=== PATIENT | female | born 1975 | race Caucasian/White ===

== ENCOUNTER → 2022-08-20 | Outpatient (CLI) | payer OTHER ==
[~2022-08-20] MED LIST: CEPH500 PO; HYDACE5 PO; OXYACE5T PO; SULTRIDS PO
[2022-08-20 19:30] LABS: BASOPHILS ABSOLUTE AUTO 0.05 K/mm3 (0.00-0.23); BASOPHILS PERCENT AUTO 1 % (0-2); EOSINOPHILS ABSOLUTE AUTO 0.13 K/mm3 (0.00-0.68); EOSINOPHILS PERCENT AUTO 3 % (0-6); Hematocrit 35.5 % (33.0-51.0); Hemoglobin 12.4 g/dL (11.5-16.0); IMMATURE GRAN ABSOLUTE AUTO 0.01 K/mm3 (0.00-0.10); IMMATURE GRAN PERCENT AUTO 0 % (0-1); LYMPHOCYTES ABSOLUTE AUTO 1.36 K/mm3 (0.84-5.20); LYMPHOCYTES PERCENT AUTO 33 % (21-46); MONOCYTES ABSOLUTE AUTO 0.74 K/mm3 (0.16-1.47); MONOCYTES PERCENT AUTO 18 % (4-13); Mean Corpuscular HGB 33.5 pg (26.0-34.0); Mean Corpuscular HGB Conc 34.9 g/dL (31.5-36.5); Mean Corpuscular Volume 96 fL (80-100); Mean Platelet Volume 10.9 fL (9.1-12.4); NEUTROPHILS ABSOLUTE AUTO 1.81 K/mm3 (1.96-9.15); NEUTROPHILS PERCENT AUTO 44 % (41-73); Platelet Count 74 K/mm3 (150-400); RDW Coefficient Variation 14.6 % (11.7-14.2)
[2022-08-20 19:40] LABS: Albumin, Blood 2.3 g/dL (3.4-5.0); Albumin/Globulin Ratio 0.4 (0.8-1.8); Bilirubin, Total 3.3 mg/dL (0.1-1.0); Bun/Creatinine Ratio 17.8 (12.0-20.0); Calcium, Blood 8.9 mg/dL (8.5-10.1); Creatinine, Blood 0.68 mg/dL (0.40-1.00); Globulin, Blood 5.8 g/dL (2.2-4.0); Potassium, Blood 3.5 mmol/L (3.5-5.5); Total Protein, Blood 8.1 g/dL (6.4-8.2)
== END | disposition home or self-care (01) ==
LOC: LAB 17:40 → LAB SHORT 17:40
PROVIDERS: Family Medicine
DX: D69.59 Other secondary thrombocytopenia (principal); K70.30 Alcoholic cirrhosis of liver without ascites
CPT/HCPCS: 80053; 85025

== ENCOUNTER → 2022-08-23 | Outpatient (CLI) | payer OTHER ==
[2022-08-23 11:22] LABS: International Normalized Ratio 1.39; Prothrombin Time Results 14.3 Sec (9.7-11.5)
[2022-08-23 11:23] LABS: International Normalized Ratio 1.36
[2022-08-23 11:54] LABS: BASOPHILS ABSOLUTE AUTO 0.03 K/mm3 (0.00-0.23); BASOPHILS PERCENT AUTO 1 % (0-2); EOSINOPHILS ABSOLUTE AUTO 0.13 K/mm3 (0.00-0.68); EOSINOPHILS PERCENT AUTO 3 % (0-6); Hematocrit 36.3 % (33.0-51.0); Hemoglobin 12.6 g/dL (11.5-16.0); IMMATURE GRAN ABSOLUTE AUTO 0.01 K/mm3 (0.00-0.10); IMMATURE GRAN PERCENT AUTO 0 % (0-1); LYMPHOCYTES ABSOLUTE AUTO 1.36 K/mm3 (0.84-5.20); LYMPHOCYTES PERCENT AUTO 32 % (21-46); MONOCYTES ABSOLUTE AUTO 0.74 K/mm3 (0.16-1.47); MONOCYTES PERCENT AUTO 18 % (4-13); Mean Corpuscular HGB 33.7 pg (26.0-34.0); Mean Corpuscular HGB Conc 34.7 g/dL (31.5-36.5); Mean Corpuscular Volume 97 fL (80-100); Mean Platelet Volume 9.8 fL (9.1-12.4); NEUTROPHILS ABSOLUTE AUTO 1.96 K/mm3 (1.96-9.15); NEUTROPHILS PERCENT AUTO 46 % (41-73); Platelet Count 78 K/mm3 (150-400); RDW Coefficient Variation 14.8 % (11.7-14.2); RDW Standard Deviation 53.1 fL (35.1-46.3); Red Blood Cell Count 3.74 M/mm3 (3.80-5.20); White Blood Cell Count 4.23 K/mm3 (4.00-11.30)
== END | disposition home or self-care (01) ==
LOC: LAB SHORT 10:41 → LAB 10:41
PROVIDERS: Family Medicine; Nurse Practitioner Family
DX: D69.59 Other secondary thrombocytopenia (principal)
CPT/HCPCS: 85025; 85610; 85730

== ENCOUNTER 2024-03-15 17:23 | Inpatient (IN) | payer OTHER ==
[~2024-03-15] VITALS: Ht 160 cm; Wt 111.8 kg
[~2024-03-15 17:23] MED LIST changes: +BUME1 PO; +BUME2 PO; +DESVENLAFAXINE50 M3 PO; +LACT10SY PO; +Potassium Chlo20 ME1 PO; +SIME80CH PO; +SPIR50 PO; +SULFAMETHOXAZO1 EAC1 PO
[2024-03-15 19:34] LABS: BASOPHILS ABSOLUTE AUTO 0.06 K/mm3 (0.00-0.23); BASOPHILS PERCENT AUTO 1 % (0-2); EOSINOPHILS ABSOLUTE AUTO 0.16 K/mm3 (0.00-0.68); EOSINOPHILS PERCENT AUTO 4 % (0-6); Hematocrit 34.6 % (33.0-51.0); Hemoglobin 12.1 g/dL (11.5-16.0); IMMATURE GRAN ABSOLUTE AUTO 0.02 K/mm3 (0.00-0.10); IMMATURE GRAN PERCENT AUTO 1 % (0-1); LYMPHOCYTES ABSOLUTE AUTO 0.94 K/mm3 (0.84-5.20); LYMPHOCYTES PERCENT AUTO 21 % (21-46); MONOCYTES ABSOLUTE AUTO 0.65 K/mm3 (0.16-1.47); MONOCYTES PERCENT AUTO 15 % (4-13); Mean Corpuscular HGB 33.7 pg (26.0-34.0); Mean Corpuscular Volume 96 fL (80-100); NEUTROPHILS ABSOLUTE AUTO 2.61 K/mm3 (1.96-9.15); NEUTROPHILS PERCENT AUTO 59 % (41-73); Platelet Count 72 K/mm3 (150-400); RDW Coefficient Variation 18.1 % (11.7-14.2); RDW Standard Deviation 63.2 fL (35.1-46.3); Red Blood Cell Count 3.59 M/mm3 (3.80-5.20); White Blood Cell Count 4.44 K/mm3 (4.00-11.30)
[2024-03-15 20:01] LABS: Albumin, Blood 2.3 g/dL (3.4-5.0); Albumin/Globulin Ratio 0.7 (0.8-1.8); Bilirubin, Total 7.5 mg/dL (0.1-1.0); Bun/Creatinine Ratio 13.5 (12.0-20.0); Calcium, Blood 8.6 mg/dL (8.5-10.1); Creatinine, Blood 0.52 mg/dL (0.40-1.00); Globulin, Blood 3.5 g/dL (2.2-4.0); Total Protein, Blood 5.8 g/dL (6.4-8.2)
[2024-03-15] MEDS ORDERED: Lactulose 20 GM/30 ML UDC PO SCH ×2 (20:20→23:00)
[2024-03-15 20:50] LABS: International Normalized Ratio 1.42; Prothrombin Time Results 14.8 Sec (9.7-11.5)
[2024-03-15 21:08] LABS: Source, Urine Clean Catch
[2024-03-15 21:12] LABS: Appearance, Urine Clear (Clear); Blood, Urine 1+ (Neg); Glucose Qualitative, Urine Neg (Neg); Ketones, Urine Neg (Neg); Leukocyte Esterase, Urine 1+ (Neg); Nitrite, Urine Neg (Neg); Protein, Urine Neg (Neg); Urobilinogen, Urine 4+ (Normal)
[2024-03-15 21:17] LABS: Bilirubin, Urine 2+ (Neg); Color, Urine Orange (P-Yellow)
[2024-03-15 21:19] LABS: Bacteria Few /hpf; Squamous Epithelial Cells Few /hpf (Few)
[2024-03-15] MEDS ORDERED: Ondansetron HCl 2 MG / ML 2ML Vial IV PRN (22:35)
[2024-03-15] MEDS ORDERED: FLU VACC TS2024-25(6MOS UP)/PF 45 MCG/0.5 ML SYRINGE IM ONE (22:35)
[2024-03-15 22:40] LABS: Automated BF WBC Count 0.238 K/mm3 (0-999)
[2024-03-15] MEDS ORDERED: CefTRIAXone Sodium 1,000 MG in NS 100 ML IV SCH (22:44)
[2024-03-15 22:48] LABS: Protein, Body Fluid 0.7 g/dL
[2024-03-15] MEDS ORDERED: Spironolactone 25 MG Tab PO SCH (23:00)
[2024-03-15] MEDS ORDERED: NS 250 ML IV PRN (23:10)
[2024-03-15] MEDS ORDERED: FURO40 PO (23:15)
[2024-03-15] MEDS ORDERED: DESV50 PO (23:17)
[2024-03-15 23:50] LABS: Body Fluid WBC Count 238 /mm3 (0-999); RBC Count, Body Fluid 1225 /mm3 (0-0)
[2024-03-15 23:51] LABS: Appearance, Body Fluid Hazy (Clear); Color, Body Fluid Yellow (None-Yellow)
[2024-03-15 23:56] LABS: Total Cell Count, Body Fluid 100
[2024-03-16 00:06] VITALS: BP 139/65
[2024-03-16 05:02] VITALS: BP 122/61
--- NOTE | 2024-03-16 05:44 | NUR ---
SHIFT SUMMARY NOC PT A/O X 4. PLEASANT AND COOPERATIVE WITH CARE. VSS. ADMIT FROM ED WITH HEPATIC ENCEPHALOPATHY AND AMMONIA 118. PT HAS ENULOSE PRESCRIBED AT HOME BUT REFUSES TO TAKE IT DUT TO FREQUENT LOOSE BM'S. PT GIVEN 45ML ENULOSE IN ED AND HAS PRODUCE 4 XL LOOSE BM'S SINCE ADMIT TO UNIT. PT LUNGS CLEAR T/O WHILE SITTING UP, BUT EXPIRATORY WHEEZING HEARD WHILE LYING DOWN, BUT SPO2 >95% ON RA. PT REPORTS BEING SOBER X 1 YR. ENDORSE SMOKING LESS THAN 1/2 PACK DAILY, NICOTINE PATCH ORDERED. PT HAS ACITES AND PARACENTISIS PERFORMED IN ED WITH CULTURES PENDING, PT ON PROPHYLACTIC IV ABX TX PENDING RESULTS. PT HAS SEVERE RED DISCOLORATION AND SCALY SCABS FROM LIVER CIRRHOSIS ON BLE. PT HAS REMAINED WITH PT T/O NIGHT TO RELIEVE ANXIETY. PT CURRENTLY RESTING WITH BED IN LOWEST POSITION, AND CALL LIGHT WITHIN REACH.
[2024-03-16 06:47] LABS: Albumin, Blood 2.2 g/dL (3.4-5.0); Albumin/Globulin Ratio 0.6 (0.8-1.8); Bilirubin, Total 6.5 mg/dL (0.1-1.0); Bun/Creatinine Ratio 13.5 (12.0-20.0); Calcium, Blood 8.2 mg/dL (8.5-10.1); Creatinine, Blood 0.52 mg/dL (0.40-1.00); Globulin, Blood 3.4 g/dL (2.2-4.0); Potassium, Blood 3.5 mmol/L (3.5-5.5); Total Protein, Blood 5.6 g/dL (6.4-8.2)
[2024-03-16 07:36] VITALS: BP 132/61
[2024-03-16] MEDS ORDERED: Nicotine 21 MG PATCH TOP SCH (09:00)
[2024-03-16] MEDS ORDERED: Empagliflozin 10 MG TAB PO SCH (09:00)
[2024-03-16] MEDS ORDERED: Bumetanide 1 MG Tab PO SCH (09:00)
[2024-03-16] MEDS ORDERED: Spironolactone 50 MG Tab PO SCH (09:00)
[2024-03-16] MEDS ORDERED: Aspirin 81 MG Chew PO SCH (13:00)
[2024-03-16] MEDS ORDERED: Prochlorperazine Edisylate 10 mg Vial IV PRN (16:50)
[2024-03-16 16:53] VITALS: BP 118/55
--- NOTE | 2024-03-16 17:27 | NUR ---
CONTACTED DR LUNDBERG REGARDING PATIENT VOMITTING. PATIENT WAS GIVEN ZOFRAN WITH NO RESULTS AND NEW MEDICATION WAS ORDERED. DR LUNDBERG ADVISED PATIENT WAS FINE MOST OF THE DAY UNTIL WAS GIVEN OUTSIDE FOOD BY SPOUSE. PATIENT SPOUSE ADVISE TO HOLD OFF ON OUTSIDE FOOD UNTIL VOMITTING SUBSIDES.
--- NOTE | 2024-03-16 17:29 | NUR ---
SHIFT SUMMARY: PATIENT WAS A/O X 4, PATIENT HAS BEEN UP IN CHAIR MOST OF TODAY AND ABLE TO BREATH WITHOUT DIFFICULTY. PATIENT ADVISED THAT LAYING DOWN CAN CAUSE PRESSURE ON THE DIAPHRAM WHICH CAUSES DIFFICULTY BREATHING. PATIENT HAS AHD VOMITTING THIS AFTERNOON AND WAS GIVEN ZOFRAN AND THEN COMPAZINE TO ASSIST WITH NAUSEA AND VOMITTING. PATIENT FAMILY BROUGHT IN OUTSIDE FOOD WHICH PATIENT ATE AND DRANK AND BEGAN VOMITTING. PATIENT FAMILY ADVISED TO HOLD OFF ON OUTSIDE FOOD DUE TO VOMITTING. PATIENT FAMILY STATED THEY WILL NOT BRING IN MORE FOOD. PATIENT ABLE TO ABULATE WITH SBA WITH FWW AND ABLE TO CALL OUT FOR ASSITANCE WHEN NEEDED. PATIENT CALL LIGHT AT BEDSIDE
[2024-03-16 19:59] VITALS: BP 109/56
[2024-03-16 20:45] LABS: Lactate Dehydrogenase, Body Fl 43 U/L
--- NOTE | 2024-03-17 01:49 | NUR ---
CONTACTED DR. WELLINGTON WITH UPDATED CORRECTION RECEIVED FROM LAB ON LDH LEVEL- ORIGINAL LAB FOR LDH WAS 449, CORRECTED AMOUNT 659, BODY FLUID LDH WAS 57, ACTUAL 43.
--- NOTE | 2024-03-17 03:40 | NUR ---
PT HAD EMESIS - WAS GOING TO MEDICATE WITH COMPAZINE BUT PT'S IV TO RAC WAS PARTIALLY PULLED OUT - APPEARED TO HAVE INFILTRATED. CALLED [facility], PHARMACIST UPDATED THAT PT RECEIVED ROCEPHIN EARLIER TONIGHT AND THAT THE IV INFILTRATED. (THE IV FLUSHED WELL EARLIER AND THE PUMP DID NOT ALARM AT ALL.) R ARM IS CURRENTLY ELEVATED ON A PILLOW. AWAITING RETURN PHONE CALL FROM [facility] FOR FURTHER INSTRUCTION. THE SITE ISN'T RED/COOL/OR WARM TO THE TOUCH.
[2024-03-17 04:07] VITALS: BP 110/51
--- NOTE | 2024-03-17 06:02 | NUR ---
I SPOKE TO [facility] - HE REPORTED THAT ROCEPHIN ISN'T A VESICANT BUT AN IRRITANT AND TO ELEVATE THE R ARM - WHICH WE HAVE BEEN DOING SINCE 329. I MARKED THE SITE, AND TOOK A PICTURE, AND NOTIFIED DR. WELLINGTON OF ALL OF THE ABOVE, AND THAT THE SITE IS OOZING - CONTINUE TO MONITOR AND FOLLOW UP WITH THE DRKian IF THE SITE WORSENS.
--- NOTE | 2024-03-17 06:20 | NUR ---
SHIFT SUMMARY - PT HAS BEEN SLEEPING THROUGHOUT MOST OF THE NIGHT, EXCEPT FOR WHEN SHE HAD LOOSE STOOLS. PT TOOK HER LACTULOSE EARLIER TONIGHT WITHOUT DIFFICULTY. PT HAS BEEN SLEEPING IN THE CHAIR - WHICH IS HER PREFERENCE. R AC IV SITE INFILTRATED - SEE PREVIOUS NOTES REGARDING INFILTRATION. CALL LIGHT WITHIN REACH. FLUIDS AT BEDSIDE. PT UP SEVERAL TIMES TONIGHT WITH LOOSE BM'S.
[2024-03-17 06:50] LABS: Albumin, Blood 2.3 g/dL (3.4-5.0); Albumin/Globulin Ratio 0.6 (0.8-1.8); Bilirubin, Total 7.1 mg/dL (0.1-1.0); Bun/Creatinine Ratio 11.6 (12.0-20.0); Calcium, Blood 8.4 mg/dL (8.5-10.1); Creatinine, Blood 0.52 mg/dL (0.40-1.00); Globulin, Blood 3.7 g/dL (2.2-4.0); Magnesium, Blood 2.1 mg/dL (1.6-2.4)
[2024-03-17 07:13] LABS: Hematocrit 35.1 % (33.0-51.0); Hemoglobin 12.1 g/dL (11.5-16.0); Mean Corpuscular HGB 33.5 pg (26.0-34.0); Mean Corpuscular HGB Conc 34.5 g/dL (31.5-36.5); Mean Corpuscular Volume 97 fL (80-100); Mean Platelet Volume 8.8 fL (9.1-12.4); Platelet Count 75 K/mm3 (150-400); RDW Coefficient Variation 18.1 % (11.7-14.2); RDW Standard Deviation 62.5 fL (35.1-46.3); Red Blood Cell Count 3.61 M/mm3 (3.80-5.20)
[2024-03-17 07:40] VITALS: BP 114/60
[2024-03-17] MEDS ORDERED: LACT10SY PO (13:59)
--- NOTE | 2024-03-17 14:49 | NUR ---
DISCHARGE SUMMARY: PT DISCHARGED HOME WITH HOME HEALTH SERVICES. PT/SON/SP EDUCATED ON DISCHARGE INSTRUCTIONS/PLAN/MEDICATIONS. PT/SON/SP ALL V/U AND DENIES ANY FURTHER NEEDS. SON REPORTS HE IS COMFORTABLE WITH HIS MOM DISCHARGING. PT REFUSED TO HAVE SCRIPT SENT TO A OPEN PHARMACY TODAY AND REQUESTED IT BE SENT TO [facility]. EXPLAINED THEY WILL NOT BE ABLE TO GET UNTIL TUESDAY. SP AND SON STATE THEY HAVE 3 BOTTLES OF LACTULOSE IN THE HOUSE ALREADY. EDUCATED ON DOSING AND ENCOURAGED TO TAKE DESPITE PT STATING SHE STOPPED TAKING DUE TO HAVING DIARRHEA. EXPLAINED TO THEM MECHANISM OF HOW LACTULOSE WORKS. ALL V/U. PT ESCORTED TO POV VIA WHEELCHAIR. BELONGINGS SENT WITH PT.
[2024-03-19 08:38] LABS: HEPATITIS C AB CIA INTERP High Pos (Negative); HEPATITIS C ANTIBODY CIA INDEX >11.00 IV
[2024-03-20 17:28] LABS: HCV QNT BY NAAT (IU/ML) 897000 IU/mL; HCV QNT BY NAAT (LOG IU/ML) 5.95; HCV QNT BY NAAT INTERP Detected (Not Detected)
== END 2024-03-17 15:12 | disposition home health service (06) | DRG 443 ==
LOC: ER 17:23 → MEDS 23:04 → ER 23:04 → MEDS 23:04
PROVIDERS: Internal Medicine; Student in an Organized Health Care Education/Training Program; ADMIT Internal Medicine
PROC: 0W9G3ZZ Drainage of Peritoneal Cavity, Percutaneous Approach (ICD-10-PCS; principal; 2024-03-16)
DX: K76.82 Hepatic encephalopathy (principal); K70.31 Alcoholic cirrhosis of liver with ascites; G43.B0 Ophthalmoplegic migraine, not intractable; Z28.21 Immunization not carried out because of patient refusal; F17.210 Nicotine dependence, cigarettes, uncomplicated; R29.898 Other symptoms and signs involving the musculoskeletal system; Z79.899 Other long term (current) drug therapy
CPT/HCPCS: 36415; 49083; 70450; 76705; 80053; 81001; 82140; 83615; 83735; 84157; 85025; 85027; 85610; 85730; 86803; 87070; 87075; 87086; 87205; 87522; 89051; 93005; 93010; 94760; 96365; 97161; 97530; 99285-25; A9270; G0378; J0696; J0780; J2405; J7050

== ENCOUNTER 2024-04-15 14:48 | Inpatient (IN) | payer OTHER ==
[~2024-04-15] VITALS: Ht 160 cm; Wt 108.2 kg
[~2024-04-15 14:48] MED LIST changes: +DESV50 PO; +FURO40 PO
[2024-04-15 16:10] LABS: BASOPHILS PERCENT AUTO 2 % (0-2); EOSINOPHILS ABSOLUTE AUTO 0.23 K/mm3 (0.00-0.68); EOSINOPHILS PERCENT AUTO 5 % (0-6); Hematocrit 36.6 % (33.0-51.0); Hemoglobin 12.5 g/dL (11.5-16.0); IMMATURE GRAN ABSOLUTE AUTO 0.01 K/mm3 (0.00-0.10); IMMATURE GRAN PERCENT AUTO 0 % (0-1); LYMPHOCYTES ABSOLUTE AUTO 1.16 K/mm3 (0.84-5.20); LYMPHOCYTES PERCENT AUTO 24 % (21-46); MONOCYTES ABSOLUTE AUTO 0.73 K/mm3 (0.16-1.47); MONOCYTES PERCENT AUTO 15 % (4-13); Mean Corpuscular HGB 33.2 pg (26.0-34.0); Mean Corpuscular HGB Conc 34.2 g/dL (31.5-36.5); Mean Corpuscular Volume 97 fL (80-100); Mean Platelet Volume 8.7 fL (9.1-12.4); NEUTROPHILS ABSOLUTE AUTO 2.62 K/mm3 (1.96-9.15); NEUTROPHILS PERCENT AUTO 54 % (41-73); Platelet Count 91 K/mm3 (150-400); RDW Coefficient Variation 17.2 % (11.7-14.2); RDW Standard Deviation 60.7 fL (35.1-46.3); Red Blood Cell Count 3.76 M/mm3 (3.80-5.20); White Blood Cell Count 4.85 K/mm3 (4.00-11.30)
[2024-04-15 16:24] LABS: International Normalized Ratio 1.38; Prothrombin Time Results 14.4 Sec (9.7-11.5)
[2024-04-15 16:29] LABS: Albumin, Blood 2.3 g/dL (3.4-5.0); Albumin/Globulin Ratio 0.6 (0.8-1.8); Bilirubin, Total 6.2 mg/dL (0.1-1.0); Bun/Creatinine Ratio 12.9 (12.0-20.0); Calcium, Blood 8.2 mg/dL (8.5-10.1); Creatinine, Blood 0.54 mg/dL (0.40-1.00); Globulin, Blood 3.7 g/dL (2.2-4.0); Potassium, Blood 3.9 mmol/L (3.5-5.5)
[2024-04-15 16:33] LABS: Magnesium, Blood 1.9 mg/dL (1.6-2.4); Phosphorus, Blood 3.5 mg/dL (2.5-4.9)
[2024-04-15 18:14] LABS: Source, Urine Clean Catch
[2024-04-15 18:25] LABS: Appearance, Urine Clear (Clear); Blood, Urine Neg (Neg); Color, Urine Amber (P-Yellow); Glucose Qualitative, Urine Neg (Neg); Ketones, Urine Neg (Neg); Leukocyte Esterase, Urine Neg (Neg); Nitrite, Urine Neg (Neg); Protein, Urine Neg (Neg); Urobilinogen, Urine 4+ (Normal)
[2024-04-15 18:27] LABS: Bilirubin, Urine 1+ (Neg)
[2024-04-15] MEDS ORDERED: Furosemide 10 MG / ML 2ML Vial IV ONE (19:15)
[2024-04-15] MEDS ORDERED: Lactulose 20 GM/30 ML UDC PO ONE (19:15)
[2024-04-15] MEDS ORDERED: FLU VACC TS2024-25(6MOS UP)/PF 45 MCG/0.5 ML SYRINGE IM ONE (20:25)
[2024-04-15] MEDS ORDERED: Ondansetron HCl 2 MG / ML 2ML Vial IV PRN (20:25)
[2024-04-15 20:50] LABS: CORONAVIRUS COVID-19 AG Negative (NEGATIVE); INFLUENZA A AG Negative (NEGATIVE); INFLUENZA B AG Negative (NEGATIVE)
[2024-04-15] MEDS ORDERED: Azithromycin 500 MG in NS 250 ML IV SCH (21:00)
[2024-04-15] MEDS ORDERED: Enoxaparin 40 MG/0.4 ML SYR SC SCH (21:00)
[2024-04-15] MEDS ORDERED: CefTRIAXone Sodium 1,000 MG in NS 100 ML IV SCH (21:00)
[2024-04-15 21:19] LABS: Base Excess Venous -2.5 mmol/L; Bicarbonate Venous 22.9 mmol/L (24.0-30.0); PCO2 Venous 32.5 mmHg (38-42); pH Blood Venous 7.43 (7.34-7.37)
--- NOTE | 2024-04-15 22:15 | NUR ---
NEW ADMIT. PATIENT ARRIVED TO ROOM 311 FROM THE ER. PATIENT ARRIVED WITH AT BEDSIDE. PATIENT IS ALERT WITH CONFUSION UPON ARRIVAL TO ROOM. PATIENT TRANSFERED TO HOSPITAL BED FROM [facility] WITH SLIDE SHEET AND 3 PERSON ASSIST. THIS RN TO ASSUME CARE.
[2024-04-15 22:31] VITALS: BP 109/64
[2024-04-15] MEDS ORDERED: Albumin (Human) 25gm/100ml 100 ML IV ONE (23:55)
[2024-04-16] MEDS ORDERED: NS 250 ML IV PRN (00:10)
--- NOTE | 2024-04-16 04:05 | NUR ---
SHIFT SUMMARY. PATIENT IS A&OX3 WITH CONFUSION. PATIENT IS A POOR HISTORIAN-WILL ASK TO ANSWER QUESTIONS FOR HER. PATIENT IS ABLE TO MAKE HER NEEDS KNOWN. PATIENT ASKING FOR WATER AND FOOD THIS SHIFT-CURRENT ORDER IS FOR NPO. PATIENT IS OKAY WITH WEARING CPAP BUT TOLD RT THAT SHE DID NOT WANT IT BECAUSE HER BREATHING IS BETTER THAN IT IS AT HER BASELINE. PATIENT IS PLEASANT AND COOPERATIVE WITH CARE. PATIENTS BLE ARE DISCOLORED-SEE PICTURES. PATIENT HAS RESTED ON AND OFF T/O THE NIGHT, PATIENT APPEARS TO HAVE INCREASED WORK OF BREATHING SATTING AT 96% ON RA-PATIENT DENIES NEEDING ANYTHING FOR HER BREATHING. BED IS LOCKED IN THE LOWEST POSITION WITH CALL LIGHT IN REACH. CARE IS ONGOING.
[2024-04-16 04:48] LABS: BASOPHILS ABSOLUTE AUTO 0.09 K/mm3 (0.00-0.23); BASOPHILS PERCENT AUTO 2 % (0-2); EOSINOPHILS ABSOLUTE AUTO 0.29 K/mm3 (0.00-0.68); EOSINOPHILS PERCENT AUTO 6 % (0-6); Hematocrit 32.5 % (33.0-51.0); IMMATURE GRAN ABSOLUTE AUTO 0.02 K/mm3 (0.00-0.10); IMMATURE GRAN PERCENT AUTO 0 % (0-1); LYMPHOCYTES ABSOLUTE AUTO 1.27 K/mm3 (0.84-5.20); LYMPHOCYTES PERCENT AUTO 26 % (21-46); MONOCYTES ABSOLUTE AUTO 0.85 K/mm3 (0.16-1.47); MONOCYTES PERCENT AUTO 18 % (4-13); Mean Corpuscular HGB Conc 33.8 g/dL (31.5-36.5); Mean Corpuscular Volume 98 fL (80-100); NEUTROPHILS ABSOLUTE AUTO 2.31 K/mm3 (1.96-9.15); NEUTROPHILS PERCENT AUTO 48 % (41-73); Platelet Count 82 K/mm3 (150-400); RDW Coefficient Variation 17.2 % (11.7-14.2); RDW Standard Deviation 61.2 fL (35.1-46.3); Red Blood Cell Count 3.33 M/mm3 (3.80-5.20); White Blood Cell Count 4.83 K/mm3 (4.00-11.30)
[2024-04-16 05:10] LABS: Albumin, Blood 2.5 g/dL (3.4-5.0); Albumin/Globulin Ratio 0.8 (0.8-1.8); Bilirubin, Total 5.7 mg/dL (0.1-1.0); Bun/Creatinine Ratio 12.6 (12.0-20.0); Calcium, Blood 8.3 mg/dL (8.5-10.1); Creatinine, Blood 0.56 mg/dL (0.40-1.00); Globulin, Blood 3.2 g/dL (2.2-4.0); Potassium, Blood 3.8 mmol/L (3.5-5.5); Total Protein, Blood 5.7 g/dL (6.4-8.2)
[2024-04-16 06:10] VITALS: BP 122/61
[2024-04-16 07:18] VITALS: BP 110/57
[2024-04-16] MEDS ORDERED: Furosemide 40 MG Tab PO SCH (09:00)
[2024-04-16] MEDS ORDERED: Lactulose 20 GM/30 ML UDC PO SCH (09:00)
[2024-04-16] MEDS ORDERED: Spironolactone 50 MG Tab PO SCH (09:00)
[2024-04-16 16:22] VITALS: BP 110/57
--- NOTE | 2024-04-16 17:39 | NUR ---
SHIFT SUMMARY PT CONT LEVEL OF CARE. PT NOTED TO BE A&O X2-3. PT NOTED TO BE CONT/INCONT OF URINE. PT NOTED TO TRANSFER TO BSC X1 WITH FWW THIS SHIFT. PT NOTED TO WANT TO TAKE BANDAGE OFF FROM BELOW RIGHT EYE IT WAS IRRITATING. BREAK NURSE REMOVED AND AREA NOTED TO BLEED SIGNIFIGANTLY. PRESSURE WAS HELD FOR 15MIN BEFORE BLEEDING STOPPED. PT STATED SHE DIDNT WANT THE BANDAGE BACK ON.
[2024-04-16 22:14] VITALS: BP 122/58
[2024-04-17 07:58] VITALS: BP 114/50
[2024-04-17 08:02] LABS: BASOPHILS ABSOLUTE AUTO 0.08 K/mm3 (0.00-0.23); BASOPHILS PERCENT AUTO 1 % (0-2); EOSINOPHILS ABSOLUTE AUTO 0.41 K/mm3 (0.00-0.68); EOSINOPHILS PERCENT AUTO 7 % (0-6); Hematocrit 32.3 % (33.0-51.0); Hemoglobin 10.9 g/dL (11.5-16.0); IMMATURE GRAN ABSOLUTE AUTO 0.02 K/mm3 (0.00-0.10); IMMATURE GRAN PERCENT AUTO 0 % (0-1); LYMPHOCYTES ABSOLUTE AUTO 1.47 K/mm3 (0.84-5.20); LYMPHOCYTES PERCENT AUTO 24 % (21-46); MONOCYTES ABSOLUTE AUTO 1.09 K/mm3 (0.16-1.47); MONOCYTES PERCENT AUTO 18 % (4-13); Mean Corpuscular HGB 33.3 pg (26.0-34.0); Mean Corpuscular HGB Conc 33.7 g/dL (31.5-36.5); Mean Corpuscular Volume 99 fL (80-100); Mean Platelet Volume 9.3 fL (9.1-12.4); NEUTROPHILS ABSOLUTE AUTO 2.97 K/mm3 (1.96-9.15); NEUTROPHILS PERCENT AUTO 49 % (41-73); Platelet Count 78 K/mm3 (150-400); RDW Coefficient Variation 17.7 % (11.7-14.2); Red Blood Cell Count 3.27 M/mm3 (3.80-5.20); White Blood Cell Count 6.04 K/mm3 (4.00-11.30)
--- NOTE | 2024-04-17 08:11 | NUR ---
SHIFT SUMMARY. PATIENT IS A&OX2-3 WITH CONFUSION AND FORGETFULLNESS AT TIMES. PATIENT IS CONTINENT/INCONTINENT WITH BOWEL AND BLADDER-PATIENT HAD MULTIPLE LOOSE STOOLS PER PATCH PRESS OPERATOR-PATIENT IS GETTING LACTULOOSE. SKIN IS JAUNDICED. PATIENT IS ABLE TO USE HER CALL LIGHT AND CALL APPROPRIATELY. PATIENT HAS BEEN INCONTINENT OF BOWEL THIS SHIFT. IN AT BEDSIDE T/O NIGHT. BED IS LOCKED IN THE LOWEST POSITION WITH CALL LIGHT IN REACH. REPORT GIVEN TO DAYSHIFT NURSE.
[2024-04-17 08:40] LABS: Albumin, Blood 2.3 g/dL (3.4-5.0); Albumin/Globulin Ratio 0.8 (0.8-1.8); Bun/Creatinine Ratio 10.8 (12.0-20.0); Calcium, Blood 8.3 mg/dL (8.5-10.1); Creatinine, Blood 0.56 mg/dL (0.40-1.00); Potassium, Blood 3.7 mmol/L (3.5-5.5); Total Protein, Blood 5.3 g/dL (6.4-8.2)
[2024-04-17] MEDS ORDERED: B-1100 M1 PO (13:41)
[2024-04-17] MEDS ORDERED: ALBU90OI INH (13:42)
--- NOTE | 2024-04-17 14:03 | NUR ---
DISCHARGE PT DISCHARGED HOME VIA PRIVATE VEHICLE WITH . MARKETING PR INTERN BROUGHT PT OUT IN A WHEELCHAIR. DISCHARGE FORMS AND EDUCATION PROVIDED, ALL BELONGINGS SENT WITH PT.
[2024-04-18] MEDS ORDERED: Thiamine HCl 100 MG Tab PO SCH (09:00)
== END 2024-04-17 14:03 | disposition home or self-care (01) | DRG 441 ==
LOC: ER 14:48 → MEDS 20:21
PROVIDERS: Family Medicine; Student in an Organized Health Care Education/Training Program; ADMIT Internal Medicine
DX: K76.82 Hepatic encephalopathy (principal); J96.01 Acute respiratory failure with hypoxia; D68.9 Coagulation defect, unspecified; K74.60 Unspecified cirrhosis of liver; R60.0 Localized edema; E88.09 Other disorders of plasma-protein metabolism, not elsewhere classified; D69.6 Thrombocytopenia, unspecified; E87.70 Fluid overload, unspecified; K42.9 Umbilical hernia without obstruction or gangrene; F10.21 Alcohol dependence, in remission; T47.3X6A Underdosing of saline and osmotic laxatives, initial encounter; Z91.138 Patient's unintentional underdosing of medication regimen for other reason
CPT/HCPCS: 36415; 71045; 74177; 80053; 81003; 82140; 82803; 83735; 83880; 84100; 84145; 85025; 85610; 85730; 87428-QW; 94760; 96374-59; 99285-25; A9270; J0456; J0696; J1650; J1940; J7050; P9047; Q9967

== ENCOUNTER → 2024-05-21 | Outpatient (CLI) | payer OTHER ==
[~2024-05-21] MED LIST changes: +ALBU90OI INH; +B-1100 M1 PO
== END ==
LOC: LAB SHORT 07:31 → PLD 07:31
DX: D18.01 Hemangioma of skin and subcutaneous tissue (principal)
CPT/HCPCS: 88305

== ENCOUNTER 2024-06-08 14:51 | Inpatient (IN) | payer OTHER ==
[~2024-06-08] VITALS: Ht 165.1 cm; Wt 121.4 kg
[~2024-06-08 14:51] MED LIST changes: -SPIR50 PO; +SPIRONOLACTONE PO
[2024-06-08 15:31] LABS: Hematocrit 36.7 % (33.0-51.0); Hemoglobin 12.1 g/dL (11.5-16.0); Mean Corpuscular Volume 97 fL (80-100); Mean Platelet Volume 10.3 fL (9.1-12.4); Platelet Count 94 K/mm3 (150-400); RDW Coefficient Variation 17.2 % (11.7-14.2); RDW Standard Deviation 59.9 fL (35.1-46.3); Red Blood Cell Count 3.78 M/mm3 (3.80-5.20); White Blood Cell Count 6.93 K/mm3 (4.00-11.30)
[2024-06-08 15:43] LABS: Albumin, Blood 2.1 g/dL (3.4-5.0); Albumin/Globulin Ratio 0.6 (0.8-1.8); Bilirubin, Total 6.1 mg/dL (0.1-1.0); Bun/Creatinine Ratio 15.7 (12.0-20.0); Calcium, Blood 7.6 mg/dL (8.5-10.1); Creatinine, Blood 0.51 mg/dL (0.40-1.00); Globulin, Blood 3.7 g/dL (2.2-4.0); Potassium, Blood 4.3 mmol/L (3.5-5.5); Total Protein, Blood 5.8 g/dL (6.4-8.2)
[2024-06-08 16:05] LABS: BASOPHILS PERCENT MAN 0 % (0-2); EOSINOPHILS PERCENT MAN 3 % (0-6); LYMPHOCYTES ABSOLUTE MAN 1.45 K/mm3 (0.84-5.20); LYMPHOCYTES PERCENT MAN 21 % (21-46); MONOCYTES ABSOLUTE MAN 1.24 K/mm3 (0.16-1.47); MONOCYTES PERCENT MAN 18 % (4-13); NEUTROPHILS ABSOLUTE MAN 4.01 K/mm3 (1.96-9.15); SEG NEUTROPHILS PERCENT MAN 58 % (41-73); TOTAL CELLS COUNTED 100
[2024-06-08] MEDS ORDERED: Ipratropium/Albuterol SulF 2.5-0.5MG/3 ML Amp INH ONE (16:15)
[2024-06-08] MEDS ORDERED: Ondansetron HCl 2 MG / ML 2ML Vial IV PRN (18:10)
[2024-06-08] MEDS ORDERED: FLU VACC TS2024-25(6MOS UP)/PF 45 MCG/0.5 ML SYRINGE IM ONE (18:10)
[2024-06-08] MEDS ORDERED: Ipratropium/Albuterol SulF 2.5-0.5MG/3 ML Amp INH PRN (18:10)
[2024-06-08] MEDS ORDERED: Albumin (Human) 25gm/100ml 100 ML IV ONE (19:10)
[2024-06-08] MEDS ORDERED: FLUTICASONE-SA1 EAC2 INH (21:38)
[2024-06-08] MEDS ORDERED: HYDHCL25 PO (21:39)
[2024-06-08] MEDS ORDERED: CLOBETASOL EMOL15 G1 UD (21:41)
[2024-06-08 21:49] LABS: International Normalized Ratio 1.38; Prothrombin Time Results 14.4 Sec (9.7-11.5)
[2024-06-08 22:30] VITALS: BP 125/65
[2024-06-08] MEDS ORDERED: POTCHL20ER (23:08)
[2024-06-08] MEDS ORDERED: LACT10SY PO (23:12)
[2024-06-08] MEDS ORDERED: Albuterol HFA200 ACT/6.7 GM INH INH PRN (23:50)
[2024-06-08] MEDS ORDERED: Mometasone/Formoterol MDI 200/5 mcg 13 GM INH SCH (23:55)
[2024-06-09 04:32] VITALS: BP 145/74
[2024-06-09 06:41] LABS: BASOPHILS ABSOLUTE AUTO 0.08 K/mm3 (0.00-0.23); BASOPHILS PERCENT AUTO 1 % (0-2); EOSINOPHILS ABSOLUTE AUTO 0.51 K/mm3 (0.00-0.68); EOSINOPHILS PERCENT AUTO 8 % (0-6); Hematocrit 32.7 % (33.0-51.0); Hemoglobin 10.7 g/dL (11.5-16.0); IMMATURE GRAN ABSOLUTE AUTO 0.02 K/mm3 (0.00-0.10); IMMATURE GRAN PERCENT AUTO 0 % (0-1); LYMPHOCYTES ABSOLUTE AUTO 1.32 K/mm3 (0.84-5.20); LYMPHOCYTES PERCENT AUTO 21 % (21-46); MONOCYTES ABSOLUTE AUTO 1.19 K/mm3 (0.16-1.47); MONOCYTES PERCENT AUTO 19 % (4-13); Mean Corpuscular HGB 32.3 pg (26.0-34.0); Mean Corpuscular HGB Conc 32.7 g/dL (31.5-36.5); Mean Corpuscular Volume 99 fL (80-100); Mean Platelet Volume 9.5 fL (9.1-12.4); NEUTROPHILS ABSOLUTE AUTO 3.24 K/mm3 (1.96-9.15); NEUTROPHILS PERCENT AUTO 51 % (41-73); Platelet Count 89 K/mm3 (150-400); RDW Coefficient Variation 17.1 % (11.7-14.2); RDW Standard Deviation 61.4 fL (35.1-46.3); Red Blood Cell Count 3.31 M/mm3 (3.80-5.20); White Blood Cell Count 6.36 K/mm3 (4.00-11.30)
[2024-06-09 07:04] LABS: Albumin, Blood 2.3 g/dL (3.4-5.0); Albumin/Globulin Ratio 0.7 (0.8-1.8); Bilirubin, Total 6.3 mg/dL (0.1-1.0); Bun/Creatinine Ratio 16.9 (12.0-20.0); Calcium, Blood 7.9 mg/dL (8.5-10.1); Creatinine, Blood 0.47 mg/dL (0.40-1.00); Globulin, Blood 3.1 g/dL (2.2-4.0); Potassium, Blood 3.7 mmol/L (3.5-5.5); Total Protein, Blood 5.4 g/dL (6.4-8.2)
--- NOTE | 2024-06-09 07:15 | NUR ---
NEW ADMIT / CRUDE OIL TREATER SUMMARY PT ADMIT FOR FLUID RETENTION. HX OF CIRRHOSIS. PLAN FOR PARACENTESIS. PT A/OX4. ABLE TO MAKE NEEDS KNOWN. PT ORIENTED TO ROOM AND CALL LIGHT. PT HOME MED, [facility] ORDERED BY DR DICKINSON. MED SENT TO PHARMACY AND RETURNED--PLACED IN PT LOCKED DRAWER. PT PLACED ON CPAP BUT DID NOT TOLERATE. PT REQUIRED INCREASED OXYGEN AT 5LPM OVER NIGHT TO MAINTAIN SATS. PT ON CONT BIOX. PT ABDOMEN IS SEVERELY DISTENDED. NOTED TACHYPNEIC AND SHALLOW. PT REPORT SHE QUIT SMOKING THIS WEEK AND HAS NOT DRANK ALCOHOL FOR 2 YEARS. PT MED REC COMPLETE. CALL LIGHT IN REACH.
--- NOTE | 2024-06-09 07:47 | NUR ---
PT C/O SEVERE HEADACHE 09/20. DR. BECERRA NOTIFIED. PT HAS NO KNOWN BLEEDING AT THIS TIME. PER MD, GIVE 400 IBUPROPHEN X1. MD TO LOOK OVER CHART
[2024-06-09] MEDS ORDERED: Ibuprofen 400 MG Tab PO ONE (07:50)
[2024-06-09 07:56] VITALS: BP 113/60
[2024-06-09] MEDS ORDERED: Furosemide 40 MG Tab PO SCH (09:00)
[2024-06-09] MEDS ORDERED: Misc. Tablet PO SCH (09:00)
[2024-06-09] MEDS ORDERED: Clobetasol Prop 0.05% Cream 15 gm TOP SCH (09:00)
[2024-06-09] MEDS ORDERED: Venlafaxine HCl 75 MG CapCR PO SCH (09:00)
[2024-06-09] MEDS ORDERED: Spironolactone 50 MG Tab PO SCH (09:00)
[2024-06-09] MEDS ORDERED: Thiamine HCl 100 MG Tab PO SCH (09:00)
--- NOTE | 2024-06-09 17:27 | NUR ---
PT HAS HAD APPROX [address] BECERRA NOTIFIED. PER , THIS IS OK FOR THE PT AT THIS TIME. PLAN FOR PARACENTESIS TOMORROW.
[2024-06-09 17:42] VITALS: BP 121/66
[2024-06-09 19:10] VITALS: BP 123/74
[2024-06-09] MEDS ORDERED: Ibuprofen 400 MG Tab PO PRN (19:30)
[2024-06-10 03:27] VITALS: BP 115/58
--- NOTE | 2024-06-10 05:20 | NUR ---
ACCOUNTING METHODS ANALYST SUMMARY: PT A&O X4. MAKES NEEDS KNOWN. PT ABDOMEN IS SEVERELY DISTENDED. RESPIRATIONS TACHYPNIC. CURRENTLY ON 5LPM VIA NC. CONTINUOUS BIOX; SATS ABOVE 90%. NO ACUTE EVENTS T/O SHIFT. BED IN LOWEST POSITION. CALL LIGHT IN REACH. CARES ONGOING ORDERED.
[2024-06-10 05:32] LABS: BASOPHILS ABSOLUTE AUTO 0.05 K/mm3 (0.00-0.23); BASOPHILS PERCENT AUTO 1 % (0-2); EOSINOPHILS ABSOLUTE AUTO 0.34 K/mm3 (0.00-0.68); EOSINOPHILS PERCENT AUTO 5 % (0-6); Hematocrit 33.7 % (33.0-51.0); Hemoglobin 10.9 g/dL (11.5-16.0); IMMATURE GRAN ABSOLUTE AUTO 0.02 K/mm3 (0.00-0.10); IMMATURE GRAN PERCENT AUTO 0 % (0-1); LYMPHOCYTES ABSOLUTE AUTO 0.93 K/mm3 (0.84-5.20); LYMPHOCYTES PERCENT AUTO 13 % (21-46); MONOCYTES ABSOLUTE AUTO 1.24 K/mm3 (0.16-1.47); MONOCYTES PERCENT AUTO 17 % (4-13); Mean Corpuscular HGB Conc 32.3 g/dL (31.5-36.5); Mean Corpuscular Volume 99 fL (80-100); Mean Platelet Volume 9.6 fL (9.1-12.4); NEUTROPHILS ABSOLUTE AUTO 4.59 K/mm3 (1.96-9.15); NEUTROPHILS PERCENT AUTO 64 % (41-73); Platelet Count 94 K/mm3 (150-400); RDW Coefficient Variation 17.2 % (11.7-14.2); RDW Standard Deviation 60.6 fL (35.1-46.3); Red Blood Cell Count 3.41 M/mm3 (3.80-5.20); White Blood Cell Count 7.17 K/mm3 (4.00-11.30)
[2024-06-10 05:51] LABS: Bun/Creatinine Ratio 15.5 (12.0-20.0); Calcium, Blood 8.1 mg/dL (8.5-10.1); Creatinine, Blood 0.52 mg/dL (0.40-1.00); Potassium, Blood 4.1 mmol/L (3.5-5.5)
[2024-06-10 08:05] VITALS: BP 132/71
--- NOTE | 2024-06-10 11:40 | NUR ---
TO RADIOLOGY VIA CART.
[2024-06-10 13:11] LABS: Automated BF WBC Count 0.185 K/mm3 (0-999)
[2024-06-10 13:13] LABS: Albumin, Body Fluid 0.2 g/dL
[2024-06-10 13:15] LABS: Body Fluid WBC Count 185 /mm3 (0-999)
[2024-06-10 13:16] LABS: Protein, Body Fluid 0.6 g/dL
[2024-06-10 13:17] LABS: Appearance, Body Fluid Clear (Clear); Color, Body Fluid Yellow (None-Yellow)
[2024-06-10 13:24] LABS: Lactate Dehydrogenase, Body Fl 32 U/L
[2024-06-10 13:48] LABS: RBC Count, Body Fluid 773 /mm3 (0-0)
[2024-06-10 14:17] LABS: Total Cell Count, Body Fluid 100
[2024-06-10] MEDS ORDERED: Albumin (Human) 25gm/100ml 100 ML IV SCH (15:00)
[2024-06-10 16:39] VITALS: BP 125/64
[2024-06-10] MEDS ORDERED: Lactulose 20 GM/30 ML UDC PO SCH (17:00)
--- NOTE | 2024-06-10 17:49 | NUR ---
PT ON 5L NC SAT 92%. PT CONTINUES TO HAVE INCREASED WOB BEFORE AND AFTER THORACENTESIS. CALLS APPROPRIATELY, REPORTS BEING VERY TIRED. 4.6L REMOVED FROM ABDOMEN. PURWICK IN PLACE
[2024-06-10 19:49] VITALS: BP 124/64
[2024-06-11] VITALS (10 sets, daily range): BP systolic 118–129; BP diastolic 52–67
--- NOTE | 2024-06-11 04:12 | NUR ---
COOKING CHEF SUMMARY: PT A&O X4. MAKES NEEDS KNOWN. CALLS APPROPRIATELY. PT SATS 90-94% ON 5L NC. PUREWICK IN PLACE. INDEPENDENT WITH BED MOBILITY. NO ACUTE EVENTS T/O SHIFT. CARES ONGOING ORDERED.
[2024-06-11 05:06] LABS: Base Excess Venous 2.8 mmol/L; Bicarbonate Venous 27.3 mmol/L (24.0-30.0); PO2 Venous 149 mmHg (38-42); pH Blood Venous 7.53 (7.34-7.37)
[2024-06-11 05:25] LABS: BASOPHILS ABSOLUTE AUTO 0.05 K/mm3 (0.00-0.23); BASOPHILS PERCENT AUTO 1 % (0-2); EOSINOPHILS ABSOLUTE AUTO 0.18 K/mm3 (0.00-0.68); EOSINOPHILS PERCENT AUTO 2 % (0-6); Hematocrit 32.7 % (33.0-51.0); Hemoglobin 10.4 g/dL (11.5-16.0); IMMATURE GRAN ABSOLUTE AUTO 0.04 K/mm3 (0.00-0.10); IMMATURE GRAN PERCENT AUTO 1 % (0-1); LYMPHOCYTES ABSOLUTE AUTO 0.97 K/mm3 (0.84-5.20); LYMPHOCYTES PERCENT AUTO 11 % (21-46); MONOCYTES ABSOLUTE AUTO 1.26 K/mm3 (0.16-1.47); MONOCYTES PERCENT AUTO 14 % (4-13); Mean Corpuscular HGB 32.5 pg (26.0-34.0); Mean Corpuscular HGB Conc 31.8 g/dL (31.5-36.5); Mean Corpuscular Volume 102 fL (80-100); Mean Platelet Volume 9.4 fL (9.1-12.4); NEUTROPHILS ABSOLUTE AUTO 6.36 K/mm3 (1.96-9.15); NEUTROPHILS PERCENT AUTO 72 % (41-73); Platelet Count 81 K/mm3 (150-400); RDW Coefficient Variation 17.4 % (11.7-14.2); White Blood Cell Count 8.86 K/mm3 (4.00-11.30)
[2024-06-11 06:03] LABS: Bun/Creatinine Ratio 16.7 (12.0-20.0); Calcium, Blood 7.8 mg/dL (8.5-10.1); Creatinine, Blood 0.48 mg/dL (0.40-1.00); Potassium, Blood 4.2 mmol/L (3.5-5.5)
--- NOTE | 2024-06-11 08:01 | NUR ---
ASSUMED CARE OF PATIENT. ASLEEP DURING SHIFT CHANGE REPORT. O2 VIA N/C IN PLACE. CONTINUOUS BiOx IN PLACE. MOVED TO LOWER [facility] c RT. FAMILY MEMBER ASLEEP AT BEDSIDE. BED IN LOWEST POSITION. CALL LIGHT WITHIN REACH.
[2024-06-11] MEDS ORDERED: Trimethoprim/Sulfamethoxazole DS Tab PO SCH (11:45)
--- NOTE | 2024-06-11 13:15 | NUR ---
DR. MASTERSON TO BEDSIDE.
[2024-06-11] MEDS ORDERED: CLOBETASOL 0.05% TOP (13:46)
[2024-06-11] MEDS ORDERED: Furosemide 40 MG Tab PO SCH (18:00)
--- NOTE | 2024-06-11 19:01 | NUR ---
END OF SHIFT SUMMARY: A&Ox4. PLEASANT AND COOPERATIVE WITH CARE. CALLS APPROPRIATELY AND IS ABLE TO ADVOCATE NEEDS EFFECTIVELY. MIXED CONTINENT/INCONTINENT. LBM TODAY. STAND-PIVOT TO BSC. MEDS WHOLE c FLUIDS. THORACENTESIS TODAY c REMOVAL OF 1200mL FLUID; MEDICATED x1 PRN PAIN AFTER PROCEDURE. SMALL BANDAGE TO LEFT FLANK. C / O ABDOMINAL FULLNESS AND PAIN WITH MOVEMENT, BUT DOES NOT LIKE TO TAKE NARCOTICS. DR MASTERSON TO BEDSIDE FOR GI CONSULT; ABD US ORDERED x2 AND COMPLETED. FAMILY IN TO VISIT THIS AFTERNOON. BED IN LOWEST POSITION, CALL LIGHT WITHIN REACH, ALL NEEDS MET. REPORT TO ONCOMING NURSE.
--- NOTE | 2024-06-11 20:08 | NUR ---
ASSUMPTION OF CARE: ASSUMED CARE OF PT. PT RESTING COMFORTABLY IN BED SURROUNDED BY FAMILY AT TIME OF SHIFT CHANGE REPORT. 02 5LPM VIA NC IN PLACE. CONTINUOUS BIOX IN PLACE. BED IN LOSEST POSITION. CALL LIGHT IN REACH.
--- NOTE | 2024-06-12 04:37 | NUR ---
TENDER COORDINATOR SUMMARY: PT A&O X4. MAKES NEEDS KNOWN AND USES CALL LIGHT APPROPRIATELY. PT REFUSED HS MEDICATIONS, EDUCATION PROVIDED ON LACTULOSE. NO ACUTE EVENTS OVERNIGHT. OXYGEN AT 5LPM VIA NC, SATS MAINATANED ABOVE 92%. BED IN LOWEST POSITION. CALL LIGHT IN REACH. CARES ONGOING ORDERED.
[2024-06-12 05:18] VITALS: BP 126/63
[2024-06-12 07:28] VITALS: BP 134/61
--- NOTE | 2024-06-12 08:00 | NUR ---
ASSUMPTION OF CARE: ASSUMED CARE OF PATIENT. ASLEEP DURING SHIFT CHANGE REPORT. LYING IN BED c HOB ELEVATED; SON PRESENT AT BEDSIDE. MAINTAINING SPO2 >92% ON 5LPM/NC PER CONTINUOUS BiOx. TELE SINUS @ 79 PER LAST STRIP PRINT OUT. BED IN LOWEST POSITION. CALL LIGHT WITHIN REACH. NO ACUTE NEEDS.
--- NOTE | 2024-06-12 08:35 | NUR ---
DR. WELLINGTON TO BEDSIDE: OXYGEN REDUCED TO 3LPM/NC. BANDAGE REMOVED FROM LEFT ABD (SITE OF PARACENTESIS). PT S/P 2 DAYS PARA AND 1 DAY THORA.
[2024-06-12] MEDS ORDERED: Spironolactone 50 MG Tab PO SCH (09:00)
[2024-06-12 11:17] VITALS: BP 132/70
[2024-06-12 15:46] VITALS: BP 130/66
--- NOTE | 2024-06-12 16:14 | NUR ---
ATTEMPTED TO SEE PATIENT. SHE WAS RECIEVING A BEDBATH. DISCUSSED CASE WITH BEDSIDE RN. SHE REPORTED THAT DICK WAS FEELING MUCH BETTER TODAY. PC WILL CONTINUE TO FOLLOW
--- NOTE | 2024-06-12 18:07 | NUR ---
END OF SHIFT SUMMARY: A&Ox4. PLEASANT AND COOPERATIVE WITH CARE. CALLS APPROPRIATELY AND IS ABLE TO ADVOCATE NEEDS EFFECTIVELY. MIXED CONTINENT/INCONTINENT. LBM TODAY. STAND-PIVOT TO BSC. MEDS WHOLE c FLUIDS. STILL c SIGNIFICANT ABDOMINAL EDEMA AND EDEMA TO BLEs. O2 WEANED TO 3LPM/NC; DESATS c SLEEP AND REQUIRING 4-5LPM/NC @ HS. AREAS OF CENTESIS HARDLY NOTABLE; LEFT ABD AND LEFT FLANK. NO PAIN ASSOCIATED c SITES. BED IN LOWEST POSITION, CALL LIGHT WITHIN REACH, ALL NEEDS MET. REPORT TO ONCOMING NURSE.
[2024-06-12 19:26] VITALS: BP 133/60
[2024-06-12 23:26] VITALS: BP 128/71
[2024-06-13 03:20] VITALS: BP 94/81
[2024-06-13 05:14] LABS: Calcium, Blood 8.1 mg/dL (8.5-10.1); Creatinine, Blood 0.5 mg/dL (0.40-1.00); Potassium, Blood 4.4 mmol/L (3.5-5.5)
--- NOTE | 2024-06-13 06:21 | NUR ---
SUMMARY: PT A/OX4, CALLS APPROPRIATELY TO SPECIFY NEEDS AND IS PLEASANT AND COOPERATIVE W/CARE. SHE'S UP W/SBA AND PIVOT T/F TO BSC W/PURE WIC INTACT FOR URGE INCONTINENCE AND FREQ VOIDS R/T DIURESIS. GENERAL ANASARCA PERSISTS BUT EDEMA IS IMPROVING TO BLE'S AND ABDO. LEGS REMAIN DEVULCANIZER CHARGER W/VENOUS STATIS APPEARANCE AND MEDICATED CREAM APPLIED PRN. SHE REFUSED HS LACTULOSE AND REPORTED BM ON DAY SHIFT. PT IS ON 3-5L O2 VIA NC W/INCREASED O2 NEEDS WHILE ASLEEP AND O2 TITRATED PRN, CONT BIOX INTACT. PT REMAINS AT BEDSIDE TO ASSIST W/CARE NEEDS. NO ACUTE CHANGES, VSS/AFEBRILE. WILL REPORT TO DAY RN.
[2024-06-13 08:02] VITALS: BP 127/62
[2024-06-13 15:17] VITALS: BP 127/66
--- NOTE | 2024-06-13 20:09 | NUR ---
SUMMARY- PT A/O X4. VERBAL AND APPROPRIATE. PT STATES SHE WAS EXTRA SLEEPY AND DID NOT GET UP TO THE BATHROOM TODAY. PT WAS INCONT OF URINE AND HAD NO BM'S TODAY. PT REFUSED AM LACTALOSE AND RN EXPLAINED AND ENCOURAGED USE OF THIS MED TO CLEAR TOXINS, PT STATES SHS UNDERSTOOD AND DID TAKE 2 DOSES OF LACTALOSE THIS SHIFT. DR LÓPEZ IN TO SEE PT IN THE PM ABOUT 1600, PLAN FOR US GUIDED PARA LIKELY TOMORROW. PT CONT WITH OXYGEN 3L/NC, LUNGS DIM IN BASES. CONTINUES DIURESING ON LASIX. DENEIS PAIN. TOLERATING FOOD AND FLUIDS. DENIES NAUSEA OR PAIN. REPORTED TO NOC RAJAN CHAPPELL
[2024-06-13 21:12] VITALS: BP 132/61
--- NOTE | 2024-06-14 04:18 | NUR ---
SHIFT SUMMARY: PT AOX4 PLEASANT AND COOPERATIVE IN CARE. CALLS APPROPRIATELY AND ABLE TO MAKE NEEDS KNOWN. IS CURRENTLY ON 3L OF O2 NC SATTING IN THE LOW 90S. DENIES CP OR SOB. ON A PURE WICK WITH GOOD OUTPUT. PT TOLERATINE MEDICATIONS WELL. ABDOMEN DISTENDED AND CONSISTENT WITH CURRENT CONDITION. NO ACUTE EVENTS OVERNIGHT. PT IN BED SLEEPING, BED IN LOWEST POSITION, CALL LIGHT IN REACH, CONTINUING CARE.
[2024-06-14 04:55] VITALS: BP 128/69
[2024-06-14 06:15] LABS: Bun/Creatinine Ratio 16.6 (12.0-20.0); Calcium, Blood 7.9 mg/dL (8.5-10.1); Creatinine, Blood 0.48 mg/dL (0.40-1.00); Potassium, Blood 4.3 mmol/L (3.5-5.5)
[2024-06-14 07:30] VITALS: BP 123/61
[2024-06-14 15:53] VITALS: BP 129/64
[2024-06-14 20:22] VITALS: BP 131/59
--- NOTE | 2024-06-14 20:59 | NUR ---
SUMMARY- PT A/O X4, UP IN CHAIR MOST OF THE SHIFT. AGREED TO TAKE THE LACTALOSE TWO DOSES TODAY. HAD 5 BOWEL MOVEMENTS FROM [id number] STARTING OFF FORMED BROWN AND RUNNING INTO LIQUID BROWN, LATTER 3 MOVEMENTS EXPLOSIVE AND LG, UP THE PT'S BACK IN THE CHAIR UNABLE TO GET UP SOON ENOUGH A FEW TIMES. HELD LATER DOSES. PT TOLERATING FOOD AND FLUIDS. SEEMS IN BETTER SPIRITS TODAY, JOVIAL AND HAPPY. LUNGS REMAIN DIM IN BASES SCATTERED COARSE, ABLE TO BRING OXYGEN DOWN 1.5L/NC. U.S. ABD PERFORMED PRE PARA, FOUND MIN FREE FLUID AND UNABLE TO PERFORM PROCEDURE. REPORTED TO NOC RAJAN ROUSE
[2024-06-15 03:03] VITALS: BP 133/64
--- NOTE | 2024-06-15 04:17 | NUR ---
SHIFT SUMMARY: PT AOX4 CALLS APPROPRIATELY AND ABLE TO MAKE NEEDS KNOWN. HAD SEVERAL LOOSE STOOLS DUE TO LACTALOSE GIVEN ON DAY SHIFT. LUNGS SOUND MUCH CLEARER AND PT REPORTS FEELING MUCH BETTER. IS ABLE TO GET UP AND TRANSFER 1PA AND STEADY GAIT. LEGS APPEAR LESS SWOLEN, PT REPORTS BEING ABLE TO BREATHE EASIER AND FEELS MUCH MORE COMFORTABLE. TOLERATING MEDICATIONS WELL, NO ACUTE EVENTS OVERNIGHT. PT IN BED RESTING, BED IN LOWEST POSITION CAN CALL LIGHT IN REACH. CONTINUING CARE.
[2024-06-15 06:45] LABS: Bun/Creatinine Ratio 16.4 (12.0-20.0); Creatinine, Blood 0.49 mg/dL (0.40-1.00); Potassium, Blood 4.1 mmol/L (3.5-5.5)
[2024-06-15 07:36] VITALS: BP 129/63
--- NOTE | 2024-06-15 08:07 | NUR ---
ASSUMPTION OF CARE: ASSUMED CARE OF PATIENT. ASLEEP DURING SHIFT CHANGE REPORT. LYING IN BED. CONTINUOUS BiOx IN PLACE. O2 @ 1.5LPM/NC. BREATHING STILL SLIGHTLY LABORED. BED IN LOWEST POSITION. CALL LIGHT WITHIN REACH. NO ACUTE NEEDS.
--- NOTE | 2024-06-15 14:48 | NUR ---
DR. MASTERSON TO BEDSIDE TO DISCUSS POSSIBLE EGD.
--- NOTE | 2024-06-15 16:26 | NUR ---
MET WITH PATIENT AND HER SISTER. DISCUSSED TREATMENTS PATIENT IS NOT WANTING TO TAKE HER LACTULOSE. DISCUSSED THE BENIFITS AND NORMALIZED HER EXPERIENCE. SHE UNDERSTANDS THE IMPORTANCE OF TAKING HER MEDICATIONS RECOMENDED. WE DISCUSSED HOME OXYGEN USE. PROVIDED THERAPUTIC CONVERSATION.
--- NOTE | 2024-06-15 19:17 | NUR ---
END OF SHIFT SUMMARY: A&Ox4. PLEASANT AND COOPERATIVE WITH CARE. CALLS APPROPRIATELY AND IS ABLE TO ADVOCATE NEEDS EFFECTIVELY. CONTINENT OF BOWEL AND BLADDER. REFUSED LACTULOSE TODAY. DR MASTERSON TO BEDSIDE FOR GI CONSULT; plan for EGD TOMORROW SCREENING FOR VARICES. ECHO TODAY; BUBBLE NOT DONE. BED IN LOWEST POSITION, CALL LIGHT WITHIN REACH, ALL NEEDS MET. REPORT TO ONCOMING NURSE.
[2024-06-15 19:38] VITALS: BP 124/61
[2024-06-16 03:28] VITALS: BP 128/63
[2024-06-16 07:46] VITALS: BP 128/66
[2024-06-16 08:14] LABS: Bun/Creatinine Ratio 16.1 (12.0-20.0); Calcium, Blood 8.2 mg/dL (8.5-10.1); Creatinine, Blood 0.5 mg/dL (0.40-1.00); Potassium, Blood 4.2 mmol/L (3.5-5.5)
[2024-06-16] MEDS ORDERED: Lidocaine HCl 1% 5 ML SYR INJ ONE (09:10)
[2024-06-16] MEDS ORDERED: Lactated Ringer's 1,000 ML IV SCH (09:10)
[2024-06-16] MEDS ORDERED: Albuterol 2.5 MG/3 ML VIAL INH PRN (09:10)
[2024-06-16] MEDS ORDERED: Ondansetron HCl 2 MG / ML 2ML Vial IV PRN (09:10)
[2024-06-16 09:18] VITALS: BP 119/63
--- NOTE | 2024-06-16 09:32 | NUR ---
06/16/24 0932 Sherwin Muñoz History, Chart, Medications and Allergies reviewed before start of procedure. MONITOR INTACT WITH CONTINUOUS PULSE OXIMETRY, CONTINUOUS END TITAL CO2, 3-LEAD EKG AND INTERMITTENT BLOOD PRESSURE. 3-LEAD EKG REVIEWED WITH PHYSICIAN PRIOR TO START OF PROCEDURE. Bite Block Placed O2 VIA POM INTACT THROUGHOUT SEDATION/PROCEDURE. ALL BELONGINGS LEFT IN PT'S ROOM. PT'S SON REMAINED IN MEDICAL FLOOR ROOM. PT ABLE TO TRANSFER TO [facility] WITH MINIMAL ASSISTANCE. 3L OXYGEN REMAINED IN PLACED DURING TRANSFER VIA HI.
[2024-06-16] MEDS ORDERED: propofoL 20 ML IV ONE (11:52)
--- NOTE | 2024-06-16 11:59 | NUR ---
PER RT: HOME O2 EVAL YIELDED NEED FOR 8LPM/NC TO MAINTAIN SPO2 >88% c AMBULATION. DR. WELLINGTON NOTIFIED PATIENT HAS COMPLEX INABILITY TO SUPPORT OXYGEN DEMANDS. DR. WELLINGTON WILL COME TALK TO PATIENT.
--- NOTE | 2024-06-16 15:18 | NUR ---
DISCHARGE: PT D/C MED 305 @7858 VIA WHEELCHAIR. DISCHARGE INSTRUCTIONS AND EDUCATION PROVIDED. ALL BELONGINGS WITH PT.
== END 2024-06-16 17:24 | disposition home health service (06) | DRG 432 ==
LOC: ER 14:51 → MEDS 14:52 → ERHOLD 14:52 → MEDS 22:19 → ENPENDDIS 06-16 13:27 → MEDS 06-16 17:24
PROVIDERS: Internal Medicine; Student in an Organized Health Care Education/Training Program; ADMIT Internal Medicine
PROC: 0W9G3ZZ Drainage of Peritoneal Cavity, Percutaneous Approach (ICD-10-PCS; principal; 2024-06-10)
PROC: 0W9B3ZZ Drainage of Left Pleural Cavity, Percutaneous Approach (ICD-10-PCS; 2024-06-10)
PROC: 0DJ08ZZ Inspection of Upper Intestinal Tract, Via Natural or Artificial Opening Endoscopic (ICD-10-PCS; 2024-06-16)
DX: K70.31 Alcoholic cirrhosis of liver with ascites (principal); J96.01 Acute respiratory failure with hypoxia; I50.32 Chronic diastolic (congestive) heart failure; Z68.41 Body mass index [BMI] 40.0-44.9, adult; J90 Pleural effusion, not elsewhere classified; K76.6 Portal hypertension; D68.4 Acquired coagulation factor deficiency; J94.8 Other specified pleural conditions; E87.1 Hypo-osmolality and hyponatremia; F10.20 Alcohol dependence, uncomplicated; B19.20 Unspecified viral hepatitis C without hepatic coma; D69.6 Thrombocytopenia, unspecified; E88.09 Other disorders of plasma-protein metabolism, not elsewhere classified; F41.8 Other specified anxiety disorders; J45.40 Moderate persistent asthma, uncomplicated; F15.90 Other stimulant use, unspecified, uncomplicated; K76.82 Hepatic encephalopathy; E66.01 Morbid (severe) obesity due to excess calories; K70.40 Alcoholic hepatic failure without coma; K31.89 Other diseases of stomach and duodenum; Z80.0 Family history of malignant neoplasm of digestive organs; Z87.19 Personal history of other diseases of the digestive system; Z79.51 Long term (current) use of inhaled steroids; Z79.899 Other long term (current) drug therapy; Z90.721 Acquired absence of ovaries, unilateral
CPT/HCPCS: 32555; 36415; 49083; 71045; 76700; 76705; 80048; 80053; 82042; 82803; 83615; 83735; 83880; 84157; 84484; 85025; 85610; 87070; 87075; 87205; 88108; 88305; 89051; 93005; 93010; 93306; 93975; 94640; 94660; 94664; 94761; 94762; 96365; 99285-25; A9270; G0378; J2704; J7120; P9047

== ENCOUNTER 2024-07-01 15:05 | Inpatient (IN) | payer OTHER ==
[2024-07-01] VITALS (14 sets, daily range): BP systolic 90–118; BP diastolic 45–57
[~2024-07-01] VITALS: Ht 160 cm; Wt 122.0 kg
[~2024-07-01 15:05] MED LIST changes: +CLOBETASOL 0.05% TOP; +CLOBETASOL EMOL15 G1 UD; +Etomidate 2MG / ML 10ML Vial IV ONE; +FLUTICASONE-SA1 EAC2 INH; +HYDHCL25 PO; +LORazepam 2 MG/ML 1ML Injection IV ONE; +POTCHL20ER; +SuccINYLCHOLINE Chloride 100 MG/5 ML 5MLSYR IV ONE
[2024-07-01] MEDS ORDERED: Albuterol 2.5 MG/3 ML VIAL INH ONE (15:25)
[2024-07-01] MEDS ORDERED: CefTRIAXone Sodium 2,000 MG in NS 100 ML IV ONE (15:40)
[2024-07-01] MEDS ORDERED: NS IV ONE (15:40)
[2024-07-01] MEDS ORDERED: VANCOMYCIN HCL IV ONE (15:40)
[2024-07-01 15:44] LABS: PCO2 Arterial 29.8 mmHg (35-45); PO2 Arterial 76.6 mmHg (80-100); pH Blood Arterial 7.47 (7.35-7.45)
[2024-07-01 15:49] LABS: BASOPHILS ABSOLUTE AUTO 0.04 K/mm3 (0.00-0.23); BASOPHILS PERCENT AUTO 0 % (0-2); EOSINOPHILS ABSOLUTE AUTO 0.04 K/mm3 (0.00-0.68); EOSINOPHILS PERCENT AUTO 0 % (0-6); Hemoglobin 11.9 g/dL (11.5-16.0); IMMATURE GRAN ABSOLUTE AUTO 0.03 K/mm3 (0.00-0.10); IMMATURE GRAN PERCENT AUTO 0 % (0-1); LYMPHOCYTES ABSOLUTE AUTO 0.98 K/mm3 (0.84-5.20); LYMPHOCYTES PERCENT AUTO 10 % (21-46); MONOCYTES ABSOLUTE AUTO 0.75 K/mm3 (0.16-1.47); MONOCYTES PERCENT AUTO 8 % (4-13); Mean Corpuscular HGB 31.5 pg (26.0-34.0); Mean Corpuscular HGB Conc 33.1 g/dL (31.5-36.5); Mean Corpuscular Volume 95 fL (80-100); Mean Platelet Volume 8.7 fL (9.1-12.4); NEUTROPHILS ABSOLUTE AUTO 7.66 K/mm3 (1.96-9.15); NEUTROPHILS PERCENT AUTO 81 % (41-73); Platelet Count 99 K/mm3 (150-400); RDW Standard Deviation 57.3 fL (35.1-46.3); Red Blood Cell Count 3.78 M/mm3 (3.80-5.20)
[2024-07-01 16:03] LABS: International Normalized Ratio 1.34
[2024-07-01 16:05] LABS: Albumin, Blood 2.5 g/dL (3.4-5.0); Albumin/Globulin Ratio 0.7 (0.8-1.8); Bilirubin, Direct 2.7 mg/dL (0.0-0.3); Bilirubin, Indirect 6.3 mg/dL (0.1-0.7); Bun/Creatinine Ratio 19.3 (12.0-20.0); Creatinine, Blood 0.57 mg/dL (0.40-1.00); Globulin, Blood 3.5 g/dL (2.2-4.0); Magnesium, Blood 1.8 mg/dL (1.6-2.4); Phosphorus, Blood 3.4 mg/dL (2.5-4.9); Potassium, Blood 4.2 mmol/L (3.5-5.5)
[2024-07-01] MEDS ORDERED: Lactulose 200 GM/300 ML Enema 300ML BTL PR ONE (16:40)
[2024-07-01] MEDS ORDERED: LORazepam 2 MG/ML 1ML Injection IV ONE (17:35)
[2024-07-01] MEDS ORDERED: Ipratropium/Albuterol SulF 2.5-0.5MG/3 ML Amp INH SCH (18:25)
[2024-07-01] MEDS ORDERED: Albuterol 2.5 MG/3 ML VIAL INH PRN (18:30)
[2024-07-01] MEDS ORDERED: Furosemide 10 MG/ML 4ML Vial IV SCH ×2 (19:00→20:00)
[2024-07-01] MEDS ORDERED: Acetaminophen 650 MG Supp PR ONE (19:00)
[2024-07-01] MEDS ORDERED: Ketorolac Tromethamine 30mg Vial IV ONE (19:00)
[2024-07-01] MEDS ORDERED: propofoL 100 ML IV SCH (19:15)
[2024-07-01 19:27] LABS: International Normalized Ratio 1.4; Prothrombin Time Results 14.6 Sec (9.7-11.5)
[2024-07-01] MEDS ORDERED: propofoL 100 ML IV PRN (19:30)
[2024-07-01] MEDS ORDERED: LORazepam 2 MG/ML 1ML Injection IV PRN (19:30)
[2024-07-01] MEDS ORDERED: FentaNYL Citrate 50 MCG/ML 2 ML Injection ONE (19:45)
[2024-07-01 19:50] LABS: Source, Urine Foley catheter
[2024-07-01 19:54] LABS: Appearance, Urine Hazy (Clear); Blood, Urine 4+ (Neg); Color, Urine Amber (P-Yellow); Glucose Qualitative, Urine Neg (Neg); Ketones, Urine Neg (Neg); Leukocyte Esterase, Urine 1+ (Neg); Nitrite, Urine Neg (Neg); Protein, Urine 2+ (Neg); Urobilinogen, Urine 4+ (Normal)
[2024-07-01] MEDS ORDERED: Lactulose 20 GM/30 ML UDC PT SCH (20:00)
[2024-07-01] MEDS ORDERED: Cetylpyridinium Chloride 1 EA MISC MT SCH (20:00)
[2024-07-01 20:02] LABS: Bilirubin, Urine 2+ (Neg)
[2024-07-01 20:04] LABS: Amorphous Light (0-Heavy); Bacteria Few /hpf; Red Blood Cells, Urine 0-2 /hpf (0-2); Squamous Epithelial Cells Few /hpf (Few); White Blood Cells, Urine 0-2 /hpf (0-5)
[2024-07-01] MEDS ORDERED: EPCLUSA 400 MG1 EAC1 PO (20:56)
[2024-07-01 20:58] LABS: Base Excess Venous -5.4 mmol/L; Bicarbonate Venous 20.8 mmol/L (24.0-30.0); PCO2 Venous 30.4 mmHg (38-42); PO2 Venous 168 mmHg (38-42); pH Blood Venous 7.41 (7.34-7.37)
[2024-07-01] MEDS ORDERED: Heparin Sodium,Porcine 5,000 UNIT/0.5 ML SDV SC SCH (21:00)
[2024-07-01] MEDS ORDERED: Azithromycin 500 MG in NS 250 ML IV SCH (21:00)
[2024-07-01] MEDS ORDERED: Albumin (Human) 25gm/100ml 100 ML IV ONE (22:00)
[2024-07-01 22:02] LABS: Source, Urine Clean Catch
[2024-07-01] MEDS ORDERED: Albumin Human 50 ML IV ONE (22:05)
[2024-07-01 22:06] LABS: Appearance, Urine Cloudy (Clear); Blood, Urine 5+ (Neg); Color, Urine Amber (P-Yellow); Glucose Qualitative, Urine Neg (Neg); Ketones, Urine Neg (Neg); Leukocyte Esterase, Urine 2+ (Neg); Nitrite, Urine Pos (Neg); Protein, Urine 3+ (Neg); Specific Gravity, Urine 1.015 (1.003-1.022); Urobilinogen, Urine 3+ (Normal)
[2024-07-01 22:07] LABS: Bilirubin, Urine 2+ (Neg)
[2024-07-01] MEDS ORDERED: Albumin (Human) 12.5gm/250ml 250 ML IV ONE (22:10)
[2024-07-01 22:13] LABS: Red Blood Cells, Urine TNTC /hpf (0-2)
[2024-07-01 22:14] LABS: Bacteria Mod /hpf; Squamous Epithelial Cells Not Seen /hpf (Few)
[2024-07-01 22:17] LABS: U Amphetamine Screen DETECTED; U Barbituate Screen Not Detected; U Benzodiazapine Screen DETECTED; U Buprenorphine Screen Not Detected; U Cannabinoids Screen Not Detected; U Cocaine Screen Not Detected; U Methadone Screen Not Detected; U Methamphetamine Screen DETECTED; U Opiates Screen Not Detected; U Oxycodone Screen Not Detected; U Phencyclidine Screen Not Detected
[2024-07-01] MEDS ORDERED: Lactulose 20 GM/30 ML UDC PO SCH (22:30)
[2024-07-02] VITALS (91 sets, daily range): BP systolic 86–122; BP diastolic 44–89
[2024-07-02] MEDS ORDERED: Lactulose 200 GM/300 ML Enema 300ML BTL PR SCH
[2024-07-02] MEDS ORDERED: Hydrogen Peroxide 1.5 % Solution MT SCH
[2024-07-02] MEDS ORDERED: Lactated Ringer's 500 ML IV ONE (00:15)
[2024-07-02] MEDS ORDERED: Vasopressin 20 UNITS in NS 100 ML IV SCH (00:15)
[2024-07-02] MEDS ORDERED: Lactated Ringer's 1,000 ML IV ONE (00:29)
[2024-07-02 00:41] LABS: Adenovirus Not Detected (NOT DETECT); Bordetella pertussis Not Detected (NOT DETECT); Chlamydophila pneumoniae Not Detected (NOT DETECT); Coronavirus 229E Not Detected (NOT DETECT); Coronavirus HKU1 Not Detected (NOT DETECT); Coronavirus NL63 Not Detected (NOT DETECT); Coronavirus OC43 Not Detected (NOT DETECT); Human Metapneumovirus Not Detected (NOT DETECT); Human Rhinovirus/Enterovirus Not Detected (NOT DETECT); Influenza A/2009-H1 Not Detected (NOT DETECT); Influenza A/H1 Not Detected (NOT DETECT); Influenza A/H3 Not Detected (NOT DETECT); Influenza B Not Detected (NOT DETECT); Mycoplasma pneumoniae Not Detected (NOT DETECT); Parainfluenza Virus 1 Not Detected (NOT DETECT); Parainfluenza Virus 2 Not Detected (NOT DETECT); Parainfluenza Virus 3 Not Detected (NOT DETECT); Parainfluenza Virus 4 Not Detected (NOT DETECT); Respiratory Syncytial Virus Not Detected (NOT DETECT); SARS-Cov-2 (COVID-19), BioFire Not Detected (NOT DETECT)
[2024-07-02 03:49] LABS: Hematocrit 32.2 % (33.0-51.0); Hemoglobin 10.7 g/dL (11.5-16.0); Mean Corpuscular HGB 32.3 pg (26.0-34.0); Mean Corpuscular HGB Conc 33.2 g/dL (31.5-36.5); Mean Corpuscular Volume 97 fL (80-100); Mean Platelet Volume 9.2 fL (9.1-12.4); Platelet Count 96 K/mm3 (150-400); RDW Coefficient Variation 17.5 % (11.7-14.2); RDW Standard Deviation 60.3 fL (35.1-46.3); Red Blood Cell Count 3.31 M/mm3 (3.80-5.20); White Blood Cell Count 14.46 K/mm3 (4.00-11.30)
[2024-07-02] MEDS ORDERED: Vancomycin HCL 1,500 MG in NS 250 ML IV SCH (04:00)
[2024-07-02 04:02] LABS: International Normalized Ratio 1.67; Prothrombin Time Results 17.2 Sec (9.7-11.5)
[2024-07-02 04:08] LABS: Albumin, Blood 2.3 g/dL (3.4-5.0); Albumin/Globulin Ratio 0.8 (0.8-1.8); Bilirubin, Total 10.6 mg/dL (0.1-1.0); Bun/Creatinine Ratio 21.7 (12.0-20.0); Calcium, Blood 7.8 mg/dL (8.5-10.1); Creatinine, Blood 0.65 mg/dL (0.40-1.00); Globulin, Blood 2.9 g/dL (2.2-4.0); Magnesium, Blood 1.7 mg/dL (1.6-2.4); Potassium, Blood 4.1 mmol/L (3.5-5.5); Total Protein, Blood 5.2 g/dL (6.4-8.2)
[2024-07-02 04:09] LABS: BAND PERCENT MAN 16 % (0-8); BASOPHILS PERCENT MAN 0 % (0-2); EOSINOPHILS PERCENT MAN 0 % (0-6); LYMPHOCYTES ABSOLUTE MAN 1.15 K/mm3 (0.84-5.20); LYMPHOCYTES PERCENT MAN 8 % (21-46); MONOCYTES ABSOLUTE MAN 0.43 K/mm3 (0.16-1.47); MONOCYTES PERCENT MAN 3 % (4-13); NEUTROPHILS ABSOLUTE MAN 12.86 K/mm3 (1.96-9.15); SEG NEUTROPHILS PERCENT MAN 73 % (41-73); TOTAL CELLS COUNTED 100
[2024-07-02] MEDS ORDERED: Magnesium Sulf 2 GM/Water 50ML 50 ML IV ONE (04:40)
[2024-07-02] MEDS ORDERED: CefTRIAXone Sodium 2,000 MG in NS 100 ML IV SCH (09:00)
[2024-07-02] MEDS ORDERED: Pantoprazole Sodium 40 MG Injection IV SCH (09:00)
[2024-07-02] MEDS ORDERED: Spironolactone 50 MG Tab PT SCH (10:00)
[2024-07-02] MEDS ORDERED: Heparin Sodium,Porcine 5,000 UNIT/0.5 ML SDV SC SCH (10:00)
[2024-07-02] MEDS ORDERED: Metolazone 5 MG Tab PT SCH (10:00)
[2024-07-02] MEDS ORDERED: LORazepam 2 MG/ML 1ML Injection IV ONE (10:15)
[2024-07-02] MEDS ORDERED: FentaNYL Citrate 50 MCG/ML 2 ML Injection IV PRN (10:15)
[2024-07-02] MEDS ORDERED: Furosemide 10 MG/ML 4ML Vial IV SCH (12:00)
[2024-07-02] MEDS ORDERED: Magnesium Hydroxide Conc 10 ML UDC PT PRN (13:05)
[2024-07-02] MEDS ORDERED: Docusate Sodium Liquid 100 MG UDC PT PRN (13:05)
[2024-07-02] MEDS ORDERED: Protein Supplement 30 ML UD PT SCH (13:05)
[2024-07-02] MEDS ORDERED: Bisacodyl 10 MG Supp PR PRN (13:05)
[2024-07-02 13:25] LABS: Hemoglobin 11.1 g/dL (11.5-16.0); Mean Corpuscular HGB 32.4 pg (26.0-34.0); Mean Corpuscular HGB Conc 33.6 g/dL (31.5-36.5); Mean Corpuscular Volume 96 fL (80-100); Mean Platelet Volume 9.3 fL (9.1-12.4); Platelet Count 99 K/mm3 (150-400); RDW Coefficient Variation 17.7 % (11.7-14.2); RDW Standard Deviation 60.2 fL (35.1-46.3); Red Blood Cell Count 3.43 M/mm3 (3.80-5.20); White Blood Cell Count 12.83 K/mm3 (4.00-11.30)
[2024-07-02 13:47] LABS: Albumin, Blood 2.4 g/dL (3.4-5.0); Albumin/Globulin Ratio 0.8 (0.8-1.8); Bilirubin, Total 12.3 mg/dL (0.1-1.0); Bun/Creatinine Ratio 26.8 (12.0-20.0); Creatinine, Blood 0.64 mg/dL (0.40-1.00); Globulin, Blood 3.1 g/dL (2.2-4.0); Magnesium, Blood 2.2 mg/dL (1.6-2.4); Potassium, Blood 3.7 mmol/L (3.5-5.5); Total Protein, Blood 5.5 g/dL (6.4-8.2)
[2024-07-02 14:07] LABS: BAND PERCENT MAN 5 % (0-8); BASOPHILS ABSOLUTE MAN 0.25 K/mm3 (0.00-0.23); BASOPHILS PERCENT MAN 2 % (0-2); EOSINOPHILS ABSOLUTE MAN 0.12 K/mm3 (0.00-0.68); EOSINOPHILS PERCENT MAN 1 % (0-6); LYMPHOCYTES ABSOLUTE MAN 0.76 K/mm3 (0.84-5.20); LYMPHOCYTES PERCENT MAN 6 % (21-46); MONOCYTES ABSOLUTE MAN 0.76 K/mm3 (0.16-1.47); MONOCYTES PERCENT MAN 6 % (4-13); SEG NEUTROPHILS PERCENT MAN 80 % (41-73); TOTAL CELLS COUNTED 100
--- NOTE | 2024-07-02 17:34 | NUR ---
SHIFT SUMMARY FAILED SAT/SBT THIS MORNING - , RR INTO 60S AND EVENTUALLY SPO2 DECREASED. PRN ATIVAN AND FENTANYL ADMINISTERED. PROPOFOL RESTARTED AT 35, LATER TITRATED TO 30. LEVOPHED AND VASOPRESSIN UNCHANGED. MORNING LA INCREASED TO 3.7. NOON REPEAT DOWN TO 3.4, DR. AMBROSE NOTIFIED. ETT 21 AT GUM SECURED BY COMMERCIAL TUBE MENENDEZ. OGT SECURED - REMAINED CONNECTED TO LIS THIS MORNING, CLAMPED FOR MEDICATIONS, AND VHP TRICKLE TF INITIATED THIS AFTERNOON. FIO2 WEANED DOWN FROM 75%. SR, SOFT BPS W/ MAP >65. DIURESED THIS SHIFT WITH LASIX X3, ALDACTONE, AND ZAROXOLYN - 3875 ML UOP VIA MINER FOR SHIFT; JESSICA WITH SEDIMENT. RECTAL TUBE REMAINS IN PLACE, FLUSHED WITH ASSESSMENTS BUT OTHERWISE, NO STOOL OUTPUT. PLACEMENT CONFIRMED WITH ASSESSMENT. DISCOLORATION AND SKIN CHANGES TO BLE, JAUNDICED AND EDEMA GENERALIZED. CVL TO RIJ, PIV X2. TO BRING HEPATITIS MEDICATION IN FOR PHARMACY.
--- NOTE | 2024-07-02 17:41 | NUR ---
PALLIATIVE CARE FAMILY VISIT: PT IS CURRENTLY INTUBATED AND SEDATED. UNABLE TO MEET WITH PT. 1145 SPOUSE WAS NOT AVAILABLE AT THIS TIME. SON DEXTER IS PRESENT. INTRODUCED DEXTER TO PALLIATIVE CARE SERVICES. DEXTER GAVE HIS VERSION OF WHAT HAPPENED TO HIS MOM. DEXTER REPORTS HIS MOM STOPPED SMOKING A MONTH AGO AND HAS NOT HAD ANY ALCOHOL INTAKE FOR THE PAST COUPLE OF YEARS. PT CAME HOME FROM THE HOSPITAL RECENTLY BUT WOULD NOT TAKE HER LACTULOSE BECAUSE SHE DOES NOT LIKE THE TASTE AND GAGS ON IT. PT ALSO DOES NOT LIKE THE SIDE EFFECTS OF DIARRHEA AND SO SHE WILL NOT TAKE HER LACTULOSE. EDUCATED DEXTER ON IMPORTANCE OF TAKING LACTULOSE AND WHY HIS MOM IS SUPPOSED TO TAKE THE MEDICATION. DEXTER DOES REPORT HIS MOM TAKES ALL HER OTHER MEDICATIONS LIKE SHE IS SUPPOSED TO. HE STATED SHE WAS UNRESONSIVE IN THE MORNING SO HE CALLED 911. DEXTER STATES HIS MOM WAS ON THE MEDICATIONS TO CURE HEPATITIS C ILLNESS FOR THE PAST WEEK, BUT NOW SHE WILL HAVE TO RESTART THE TREATMENT SINCE SHE MISSED A DOSE. HE STATES SHE HAS BEEN GOING TO HER APPOINTMENTS AND FOLLOWING UP. HE STATES SHE ALSO HAD A RED BUMP ON THE INSIDE OF HER RIGHT EYE THAT SHE HAD TREATED AND ENDED UP WITH SUTURES ON THE BOTTOM OF HER RIGHT EYELID. PT DID NOT WANT TO GO TO FOLLOW-UP APPOINTMENT SO HE OBTAINED A SUTURE REMOVAL KIT FROM A FRIEND WHO IS AN EMT AND REMOVED THE SUTURES HIMSELF. HOWEVER A COUPLE DAYS LATER THE SUTURES INSIDE THE EYE LID STARTED POKING THROUGH HER SKIN SO HE TOOK HER TO HER PCP TO HAVE THEM REMOVED. SON DEXTER STATED HE WANTS TO DONATE PART OF HIS LIVER TO HIS MOM TO SAVE HER LIFE. RELAYED ABOVE INFORMATION TO PRIMARY RN. REVIEWED CT REPORT AND ALSO ASSESSED BOTH EYES FOR S/S OF INFECTION, REDNESS, SWELLING, DRAINAGE AND NONE OBSERVED. NO SIGNS OF SUTURES PRESENT EITHER. PT IS SEDATED AND UNRESPONSIVE ON VENTILATOR. SHE IS VERY JAUNDICED. PUPILS ARE FIXED AND PINPOINT.
--- NOTE | 2024-07-02 20:07 | NUR ---
ASSUMPTION OF CARE: ASSUMED CARE OF PT AT 1900 AND PT IS INTUBATED AND SEDATED ON 40MCG/KG/MIN. PROPOFOL DECREASED TO 3OMCG FOR NEURO ASSESSMENT. PT VERY AGITATED HEART RATE INCREASED TO 100'S AND RR INCREASED TO 40'S-50'S.PT COUGHING UNCONTROLLABLY.PROPOFOL RE-INCREASED TO 40MCG.PT APPEARS MORE COMFORTABLE AND IS TOLERATING VENT.PT NOT FOLLOWING COMMANDS AND NO RESPONSE TO PAINFUL AND VERBAL STIMULI.PUPILS PINPOINT BUT REACTIVE.COUGH,GAG,SWALLOW INTACT.VENT SETTINGS AC/VC 20/400/5/45%.LUNGS CLEAR AND DIM. RR CURRENTLY 26-28.ETCO2 27, SPO2 90-92%.PT SR HR 90-100.LEVO AT 15 MCG/MIN W/VASO TO MAINTAIN MAP >65. SEE FLOW SHEET FOR TITRATIONS.CENTRAL LINE TO RIGHT IJ. PIV TO LFA. TUBE FEED AT 10ML/HR THROUGH OG TUBE. MINER PATENT AND DRAINING TO GRAVITY LARGE AMOUNTS OF YELLOW URINE.RECTAL TUBE DRAINING TO GRAVITY. FAMILY AT BEDSIDE AND UPDATED TO PLAN OF CARE.BED LOW AND LOCKED.
[2024-07-02] MEDS ORDERED: Potassium Chloride 20 MEQ/15 ML UDC PT ONE (23:00)
[2024-07-03] VITALS (90 sets, daily range): BP systolic 89–125; BP diastolic 50–72
[2024-07-03 04:18] LABS: BASOPHILS ABSOLUTE AUTO 0.09 K/mm3 (0.00-0.23); BASOPHILS PERCENT AUTO 1 % (0-2); EOSINOPHILS ABSOLUTE AUTO 0.22 K/mm3 (0.00-0.68); EOSINOPHILS PERCENT AUTO 2 % (0-6); Hematocrit 30.8 % (33.0-51.0); Hemoglobin 10.2 g/dL (11.5-16.0); IMMATURE GRAN PERCENT AUTO 1 % (0-1); LYMPHOCYTES PERCENT AUTO 14 % (21-46); MONOCYTES ABSOLUTE AUTO 2.02 K/mm3 (0.16-1.47); MONOCYTES PERCENT AUTO 17 % (4-13); Mean Corpuscular HGB 31.6 pg (26.0-34.0); Mean Corpuscular HGB Conc 33.1 g/dL (31.5-36.5); Mean Corpuscular Volume 95 fL (80-100); Mean Platelet Volume 9.5 fL (9.1-12.4); NEUTROPHILS PERCENT AUTO 65 % (41-73); NRBC ABSOLUTE 0.03 K/mm3 (0.00-0.02); NRBC Auto 0.3 /100 WBC (0.0-0.2); Platelet Count 96 K/mm3 (150-400); RDW Coefficient Variation 17.5 % (11.7-14.2); RDW Standard Deviation 60.6 fL (35.1-46.3); Red Blood Cell Count 3.23 M/mm3 (3.80-5.20); White Blood Cell Count 11.63 K/mm3 (4.00-11.30)
[2024-07-03 04:41] LABS: Alanine Aminotransfer (ALT/SGP 23 U/L (12-78); Albumin, Blood 2.2 g/dL (3.4-5.0); Albumin/Globulin Ratio 0.7 (0.8-1.8); Alk Phos 64 U/L (50-136); Anion Gap 9 mmol/L (3-11); Aspartate Aminotrans (AST/SGOT 32 U/L (12-37); Bilirubin, Total 12.4 mg/dL (0.1-1.0); Blood Urea Nitrogen 16 mg/dL (8-24); Bun/Creatinine Ratio 24.4 (12.0-20.0); CO2, Blood 25 mmol/L (21-32); Calcium, Blood 7.9 mg/dL (8.5-10.1); Chloride, Blood 106 mmol/L (98-108); Creatinine, Blood 0.66 mg/dL (0.40-1.00); Globulin, Blood 3.1 g/dL (2.2-4.0); Glomerular Filtration Rate 108 (60-); Glucose, Blood 159 mg/dL (70-99); Magnesium, Blood 1.9 mg/dL (1.6-2.4); Phosphorus, Blood 2.3 mg/dL (2.5-4.9); Potassium, Blood 4.3 mmol/L (3.5-5.5); Sodium, Blood 136 mmol/L (136-145); Total Protein, Blood 5.3 g/dL (6.4-8.2); Vancomycin, Trough 15.6 ug/mL (5.0-10.0)
--- NOTE | 2024-07-03 05:32 | NUR ---
SHIFT SUMMARY: PT REMAINS INTUBATED AND SEDATED ON 40 MCG/KG/MIN OF PROPOFOL. NEURO UNCHANGED, FIGHTS VENTILATOR WITH MOVEMENT, DOUBLE STACKING WITH RR IN THE 40'S-50'S. DESATS TO LOW 80'S. ADMININSTERED PRN ATIVAN AND FENTANYL T/O THE NIGHT. NO RESPONSE TO PAINFUL OR VERBAL STIMULI. MANDOLIN REPAIR PERSON IN PLACE, SR/ST WITH HR 90-100'S. MAP REMAINS >65 WHILE ON LEVO AND VASO. SEE FLOWSHEET FOR TITRATIONS. VENT SETTINGS AC/VC 20/400/5/55%. SPO2 90-92% WHILE AT REST. ETCO2 27-31. CONTINUING TO SUCTION THICK SECRETIONS FROM ET TUBE. MINER DRAINING LARGE AMOUNT OF URINE TO GRAVITY. RECTAL TUBE OUT THIS SHIFT. SMALL BM NOTED THIS MORNING. CENTRAL LINE TO RIJ PATENT AND INFUSING. PIV TO LFA PATENT AND SALINE LOCKED. OGT INFUSING VHP AT 10 ML/HR. BED LOW AND LOCKED.
[2024-07-03] MEDS ORDERED: Sodium Phosphate 30 MM in Dextrose 5% 500 ML IV ONE (06:00)
--- NOTE | 2024-07-03 07:00 | NUR ---
ASSUMPTION OF CARE PT RECEIVING PROPOFOL 40MCG/KG/MIN, LEVOPHED 15MCG/MIN AND VASOPRESSIN 0.04UNITS/MIN. SHE IS INTUBATED WITH VENT SETTINGS AC/VC 20/400/5/55%. RASS -5. TUBE FEEDING INFUSING VIA OGT. SINUS ON MONITOR. MINER PATENT AND DRAINING TO GRAVITY. BED IN LOW POSITION, FAMILY AT BEDSIDE.
[2024-07-03] MEDS ORDERED: LORazepam 2 MG/ML 1ML Injection IV PRN (09:10)
[2024-07-03] MEDS ORDERED: FentaNYL Citrate 50 MCG/ML 2 ML Injection IV PRN (09:10)
[2024-07-03] MEDS ORDERED: NS 250 ML IV PRN (09:40)
[2024-07-03] MEDS ORDERED: Albumin (Human) 25gm/100ml 100 ML IV SCH (10:20)
[2024-07-03 10:52] LABS: International Normalized Ratio 1.49; Prothrombin Time Results 15.5 Sec (9.7-11.5)
[2024-07-03 11:03] LABS: Albumin, Blood 2.1 g/dL (3.4-5.0); Albumin/Globulin Ratio 0.7 (0.8-1.8); Bilirubin, Direct 7.7 mg/dL (0.0-0.3); Bilirubin, Indirect 5.6 mg/dL (0.1-0.7); Bilirubin, Total 13.3 mg/dL (0.1-1.0); Bun/Creatinine Ratio 25.6 (12.0-20.0); Calcium, Blood 7.4 mg/dL (8.5-10.1); Creatinine, Blood 0.59 mg/dL (0.40-1.00); Globulin, Blood 2.9 g/dL (2.2-4.0); Potassium, Blood 3.9 mmol/L (3.5-5.5)
[2024-07-03] MEDS ORDERED: FentaNYL Citrate 50 MCG/ML 2 ML Injection IV ONE ×2 (13:10→15:55)
[2024-07-03] MEDS ORDERED: dexmedeTOMIDine 100 ML IV SCH (13:50)
--- NOTE | 2024-07-03 15:17 | NUR ---
UPDATE PROPOFOL OFF THIS AM FOR APPROX 40MIN. PT MINIMALLY RESPONSIVE TO PAINFUL STIMULI. PT TACHYPNEIC WITH RATE 60S-70S AND SPO2 DECREASING TO MID 80S. HOSTESS CASHIER AT BEDSIDE AND SEDATION RESTARTED. PT TAKEN FOR CT. PT DOES NOT TOLERATE LYING FLAT. PROPOFOL INCREASED AND MEDICATED WITH FENTANYL. PT TACHYPNEIC AND UNABLE TO PULL TIDAL VOLUMES. RT BAGGING PT. BILAT LUNG SOUNDS AUDIBLE. ONCE RR DECREASED, PT PLACED BACK ON VENT AND COMPLIANT. HEAD CT COMPLETED AND RETURNED TO ROOM.
--- NOTE | 2024-07-03 16:30 | NUR ---
PALLIATIVE CARE VISIT: MET WITH SPOUSE MARILYNN IN PATIENT ROOM. PT IS STILL ON VENTILATOR AND NON RESPONSIVE. DISCUSSED CODE STATUS WITH MARILYNN. PT IS FULL CODE. DISCUSSED RISKS VS BENEFITS OF CPR. MARILYNN STATED PT HAS ALWAYS SAID SHE WOULD WANT HER LIFE SAVED SO HE WILL KEEP HER A FULL CODE. DISCUSSED CONCERNS OF NON COMPLIANCE WITH TAKING MEDICATION LACTULOSE WITH MARILYNN. HE STATED DICK DOES NOT TAKE LACTULOSE BECAUSE SHE CAN'T STAND THE TASTE. EDUCATED MARILYNN ON THE EFFECTS OF PT NOT TAKING LACTULOSE. HE AGREED THAT THIS WAS LIKELY WHY SHE ENDED UP IN THE HOSPITAL. HE STATES IT IS A MORAL AND ETHICAL DILEMMA FOR HIM BECAUSE HE CAN'T FORCE HER TO TAKE HER MEDICATIONS. DISCUSSED CONCERNS PT HAD POSITIVE METHAMPHETAMINE IN URINE SCREEN. MARILYNN STATED SHE DOES HAVE ACCESS TO METH AND WILL SMOKE IT IF SHE USES IT. EDUCATED ON RISKS ASSOCIATED WITH TAKING METHAMPHETAMINES. ALSO EDUCATED MARILYNN THAT TAKING ILLEGAL DRUGS WILL IMPEDE PT HAVING ABILITY IN THE FUTURE TO OBTAIN A LIVER TRANSPLANT IF THAT IS THEIR GOAL. MARILYNN V/U. MARILYNN DID STATE "I WISH SHE WOULD JUST GIVE UP, I AM SO TIRED OF ALL THIS, BUT SHE HAS ALWAYS BEEN A FIGHTER". LISTENED HE DISCUSSED WITH ME HIS HOME LIFE/CONCERNS. MARILYNN ALSO REPORTED PT IS SQUEEZING HIS HAND WHEN HE HOLDS HER HAND AND ATTEMPTED TO GET PT TO SQUEEZE HIS HAND DURING OUR VISIT BUT SHE DID NOT SQUEEZE HIS HAND. PT ALSO REPORTED THE DOCTOR TOLD HIM "SHE IS GETTING BETTER".
--- NOTE | 2024-07-03 17:42 | NUR ---
SHIFT SUMMARY PT RECEIVING PROPOFOL 25MCG/KG/MIN, PRECEDEX 0.3MCG/KG/HR, LEVOPHED 7MCG/MIN AND VASOPRESSIN 0.04UNITS/HR. SHE REMAINS INTUBATED WITH VENT SETTINGS AC/VC 20/400/5/60%. PT REMAINS UNRESPONSIVE. WITH SEDATION OFF, PT BECOMES ASYNCHRONOUS WITH THE VENT AND TACHYPNEIC. ATTEMPTING TO TRANSITION FROM PROPOFOL TO PRECEDEX. TUBE FEEDING INCREASED TO 20ML/HR. ABDOMEN DISTENDED AND FIRM THROUGHOUT SHIFT. BRUISING AREA TO L SIDE. AREA OUTLINED AND RIVER DRIVER NOTIFIED. MINER PATENT AND DRAINING TO GRAVITY. SINUS ON MONITOR. FAMILY AT BEDSIDE AND UPDATED.
[2024-07-03] MEDS ORDERED: VELPATASVIR PT SCH (18:00)
[2024-07-03] MEDS ORDERED: SOFOSBUVIR PT SCH (18:00)
[2024-07-04] VITALS (96 sets, daily range): BP systolic 73–133; BP diastolic 38–99
[2024-07-04 04:45] LABS: BASOPHILS ABSOLUTE AUTO 0.06 K/mm3 (0.00-0.23); BASOPHILS PERCENT AUTO 1 % (0-2); EOSINOPHILS ABSOLUTE AUTO 0.28 K/mm3 (0.00-0.68); EOSINOPHILS PERCENT AUTO 3 % (0-6); Hematocrit 29.4 % (33.0-51.0); Hemoglobin 10.1 g/dL (11.5-16.0); IMMATURE GRAN ABSOLUTE AUTO 0.13 K/mm3 (0.00-0.10); IMMATURE GRAN PERCENT AUTO 1 % (0-1); LYMPHOCYTES ABSOLUTE AUTO 1.14 K/mm3 (0.84-5.20); LYMPHOCYTES PERCENT AUTO 12 % (21-46); MONOCYTES ABSOLUTE AUTO 1.61 K/mm3 (0.16-1.47); MONOCYTES PERCENT AUTO 17 % (4-13); Mean Corpuscular HGB 32.2 pg (26.0-34.0); Mean Corpuscular HGB Conc 34.4 g/dL (31.5-36.5); Mean Corpuscular Volume 94 fL (80-100); NEUTROPHILS ABSOLUTE AUTO 6.41 K/mm3 (1.96-9.15); NEUTROPHILS PERCENT AUTO 67 % (41-73); NRBC ABSOLUTE 0.04 K/mm3 (0.00-0.02); NRBC Auto 0.4 /100 WBC (0.0-0.2); Platelet Count 81 K/mm3 (150-400); RDW Coefficient Variation 17.9 % (11.7-14.2); RDW Standard Deviation 58.4 fL (35.1-46.3); Red Blood Cell Count 3.14 M/mm3 (3.80-5.20); White Blood Cell Count 9.63 K/mm3 (4.00-11.30)
[2024-07-04 05:19] LABS: Albumin, Blood 2.8 g/dL (3.4-5.0); Bilirubin, Total 19.9 mg/dL (0.1-1.0); Bun/Creatinine Ratio 28.4 (12.0-20.0); Calcium, Blood 8.4 mg/dL (8.5-10.1); Creatinine, Blood 0.63 mg/dL (0.40-1.00); Globulin, Blood 2.8 g/dL (2.2-4.0); Magnesium, Blood 1.9 mg/dL (1.6-2.4); Phosphorus, Blood 3.3 mg/dL (2.5-4.9); Potassium, Blood 3.6 mmol/L (3.5-5.5); Total Protein, Blood 5.6 g/dL (6.4-8.2)
--- NOTE | 2024-07-04 06:02 | NUR ---
SHIFT SUMMARY REMAINS INTUBATED- VENT SETTINGS AC/VC 20/400/5/80%. PT CONTINUES TO HAVE PERIODS OF TACHYPNEA WHERE RR INCREASES TO 40s-60s. SEDATED WITH PRECEDEX AT 0.4MCG/KG/HR. PROPOFOL TITRATED OFF EARLIER IN SHIFT. WITHDRAWS UPPER EXTREMITIES TO NOXIOUS STIMULI. REACHES TOWARDS ETT WITH RIGHT HAND WHEN UNRESTRAINED. SLIGHT MOVEMENT NOTED IN LEFT UPPER EXTREMITY. NO SPONTANEOUS MOVEMENT NOTED IN LOWER EXTREMITIES. NOT FOLLOWING ANY COMMANDS. MONITOR SHOWS NSR, RATE 70s. LEVOPHED INFUSING AT 5MCG/MIN AND VASOPRESSIN AT 0.04UNITS/MIN TO MAINTAIN MAP >65. TMAX 101.0F PER RECTAL TEMP PROBE. OG WITH VITAL HIGH PROTEIN AT GOAL RATE OF 20MLs/HR WITH 30MLs H20 Q4H. MINER PATENT AND DRAINING TO GRAVITY- ORANGE URINE. SCDs TO BLEs. PLAN OF CARE ONGOING. WILL REPORT TO ONCOMING RN WHEN AVAILABLE.
--- NOTE | 2024-07-04 07:00 | NUR ---
ASSUMPTION OF CARE RECEIVED BEDSIDE SHIFT REPORT. PATIENT INTUBATE VC/AC 20/400/5/80%. PATIENT DOES NOT PARTICIATE IN CARE/ASSESSMENT. GCS 3. INTERMITTENTLY MOVES BUE SPONTANEOUSLY, DOES NOT WITHDRAW FROM PAINFUL STIMULI. REFLEXIVE IN BLE TO STIMULUS. SR ON BUSINESS SOLUTIONS ANALYST. SPO2>90% WITH VENTILATOR SUPPORT. TF INFUSING @GOAL VIA OGT. LBM: 07/03/24 PER NIGHT RN. Jarod MINER IJ CVL, LFA PIV IN SITU. CONCENTRATED LEVO INFUSING @5MCG/MIN, VASO 0.4UNITS/HR, PRECEDEX @0.4MCG/KG/HR. CALL LIGHT WITHIN REACH AND SAFETY PRECAUTIONS IN PLACE. FAMILY AT BEDSIDE, QUESTIONS ANSWERED AND EDUCATION PROVIDED.
--- NOTE | 2024-07-04 07:30 | NUR ---
UPDATE/DE-SATURATION EVENT PATIENT SPONTANEOUS DE-SATURATION WITH COUGHING. CLOTH WEAVER RN AND RESPIRATORY AT BEDSIDE. O2 SATURATION SUSTAINING 84-85%. ET SUCTION PERFORMED, NO SPUTUM. VENTILATOR CONNECTIONS INTACT. FIO2 AND PEAK PRESSURES ADJUSTED. VC/AC 20/400/10/100%. PATIENT RECOVERED AND SPO2>90%. PRECEDEX INCREASED, PRN FENTANYL GIVEN. MD AMBROSE NOTIFIED AND AWARE OF EVENT.
[2024-07-04] MEDS ORDERED: Potassium Chl 10MEQ/Water100ML 100 ML IV ONE (07:45)
[2024-07-04] MEDS ORDERED: CefTRIAXone Sodium 1,000 MG in NS 100 ML IV SCH (09:00)
[2024-07-04] MEDS ORDERED: Spironolactone 50 MG Tab PT ONE ×2 (11:00→14:20)
[2024-07-04 11:30] LABS: International Normalized Ratio 1.5; Prothrombin Time Results 15.6 Sec (9.7-11.5)
[2024-07-04 11:36] LABS: Albumin, Blood 2.6 g/dL (3.4-5.0); Bilirubin, Direct 11.5 mg/dL (0.0-0.3); Bilirubin, Indirect 8.7 mg/dL (0.1-0.7); Bilirubin, Total 20.2 mg/dL (0.1-1.0); Globulin, Blood 2.7 g/dL (2.2-4.0); Total Protein, Blood 5.3 g/dL (6.4-8.2)
[2024-07-04] MEDS ORDERED: LORazepam 2 MG/ML 1ML Injection IV ONE (13:05)
[2024-07-04] MEDS ORDERED: RifAXIMin 550 MG Tablet XX SCH (13:44)
[2024-07-04] MEDS ORDERED: Furosemide 10 MG/ML 4ML Vial IV SCH (16:00)
[2024-07-04] MEDS ORDERED: LORazepam 2 MG/ML 1ML Injection IV PRN (16:10)
[2024-07-04] MEDS ORDERED: Lactulose 200 GM/300 ML Enema 300ML BTL PR ONE (18:15)
--- NOTE | 2024-07-04 18:22 | NUR ---
UPDATE/OGT RETRACTION PT TAKEN TO CT. DR HAAS AT BEDSIDE UPON ARRIVAL BACK TO UNIT. OGT RETRACTED BY DR HAAS. PER PROVIDERS, MAY USE OGT TO RESUME PO MEDS AND TUBE FEEDING.
--- NOTE | 2024-07-04 18:49 | NUR ---
SHIFT SUMMARY PT RECEIVING PRECEDEX 0.7MCG/KG/HR, LEVOPHED 2MCG/MIN AND VASOPRESSIN 0.04UNITS/HR. SHE REMAINS INTUBATED WITH VENT SETTINGS AC/VC 20/450/10/80%. PT COUGHS, NO GAG. PT MINIMALLY RESPONSIVE TO PAINFUL STIMULI. BECOMES TACHYPNEIC AND ASYNCHRONOUS WITH VENT DURING CARE. TUBE FEEDING STOPPED THIS AM AND RESTARTED THIS EVENING PER PROVIDER. OGT WITHDRAWN AND TAPED IN PLACE BY DR HAAS. PLAN FOR XRAY IN AM. SINUS ON MONITOR. MINER PATENT AND DRAINING TO GRAVITY. PT HAD MULTIPLE IMAGING STUDIES COMPLETED THIS SHIFT.
[2024-07-04] MEDS ORDERED: Potassium Chloride 20 MEQ/15 ML UDC PT ONE (21:00)
[2024-07-05] VITALS (87 sets, daily range): BP systolic 88–137; BP diastolic 41–68
[2024-07-05 04:21] LABS: Hematocrit 30.2 % (33.0-51.0); Hemoglobin 10.5 g/dL (11.5-16.0); Mean Corpuscular HGB 32.7 pg (26.0-34.0); Mean Corpuscular HGB Conc 34.8 g/dL (31.5-36.5); Mean Corpuscular Volume 94 fL (80-100); Mean Platelet Volume 9.1 fL (9.1-12.4); NRBC ABSOLUTE 0.07 K/mm3 (0.00-0.02); NRBC Auto 0.6 /100 WBC (0.0-0.2); Platelet Count 91 K/mm3 (150-400); RDW Coefficient Variation 18.6 % (11.7-14.2); RDW Standard Deviation 60.1 fL (35.1-46.3); Red Blood Cell Count 3.21 M/mm3 (3.80-5.20); White Blood Cell Count 11.29 K/mm3 (4.00-11.30)
[2024-07-05 04:42] LABS: International Normalized Ratio 1.46; Prothrombin Time Results 15.2 Sec (9.7-11.5)
[2024-07-05 04:46] LABS: Magnesium, Blood 1.9 mg/dL (1.6-2.4); Phosphorus, Blood 2.9 mg/dL (2.5-4.9)
[2024-07-05 05:25] LABS: Albumin, Blood 2.4 g/dL (3.4-5.0); Albumin/Globulin Ratio 0.9 (0.8-1.8); Bilirubin, Direct 13.1 mg/dL (0.0-0.3); Bilirubin, Indirect 9.8 mg/dL (0.1-0.7); Bilirubin, Total 22.9 mg/dL (0.1-1.0); Bun/Creatinine Ratio 37.2 (12.0-20.0); Calcium, Blood 8.3 mg/dL (8.5-10.1); Creatinine, Blood 0.7 mg/dL (0.40-1.00); Globulin, Blood 2.7 g/dL (2.2-4.0); Potassium, Blood 3.9 mmol/L (3.5-5.5); Total Protein, Blood 5.1 g/dL (6.4-8.2)
--- NOTE | 2024-07-05 06:19 | NUR ---
SHIFT SUMMARY: PT REMAINS INTUBATED/SEDATED. PT MOVES UPPER EXTREMETIES SPONTANEOUSLY WITHOUT PURPOSE, BLE HARD TO ASSESS, FLACCID. DOES NOT FOLLOW COMMANDS. VENT SETTINGS AC/VC 20/450/10/50%. PT COUGHS INTERMITTENTLY, TOLERATES VENT. SCANT SECRETIONS MILKY-THICK OBSERVED WITH ET SUCTIONING. PT CONTINUES TO BECOME TACHYPNEIC AND ASYNCHRONOUS W/VENT DURING CARE. HR 60S-70S, SINUS. SBP SOFT, 90S-LOW 100S. ABDOMEN REMAINS MODERATELY DISTENDED, BOWEL TONES HYPOACTIVE X4 QUADRANTS. ABD FIRM. ENEMA ADMINISTERED THIS SHIFT W/RECTAL TUBE INSERTION,PER ORDERS. PT TOLERATED WELL, SMALL SOFT-FIRM BM HAD. PT UNABLE TO RETAIN RECTAL TUBE DUE TO SPHINCTER TONE. OG TUBE REMAINS IN PLACE W/ VITAL HP INFUSING AT 35ML/HR W/ 30ML FLUSHES Q4. MINER CATH IN PLACE, PATENT,DRAINING TO GRAVITY. PT HAS CENTRAL CATH TO [facility], DRESSING CHANGED THIS SHIFT. INFUSING IS PRECEDEX 0.7MCG/KG/HR, LEVOPHED 7MCG/MIN, VASOPRESSIN 0.04UNIT/MIN.
--- NOTE | 2024-07-05 07:15 | NUR ---
Assumed care of pt at 0700 with Jewels TOLENTINO. Bedside shift report received from Mindy TOLENTINO and Ana RN. At time of report, precedex at 0.7 mcg/kg/hr, levophed at 7 mg/min and vasopressin 0.04 units/min. RASS - 4, but pt also becomes agitated, coughs, and desaturates to low 80s with any care activity. Will discuss with ICU provider before making sedation adjustments. TF and flush per orders.
[2024-07-05] MEDS ORDERED: Spironolactone 50 MG Tab PT SCH (10:00)
[2024-07-05] MEDS ORDERED: Ipratropium/Albuterol SulF 2.5-0.5MG/3 ML Amp INH PRN (12:30)
[2024-07-05] MEDS ORDERED: Albumin (Human) 25gm/100ml 100 ML IV SCH (13:00)
[2024-07-05] MEDS ORDERED: Piperacillin/Tazobactam Sod 3.375 GM in NS 100 ML IV SCH (14:00)
[2024-07-05 16:12] LABS: Vancomycin, Trough 29.7 ug/mL (5.0-10.0)
[2024-07-05] MEDS ORDERED: Lactulose 200 GM/300 ML Enema 300ML BTL PR ONE (16:45)
[2024-07-05] MEDS ORDERED: FentaNYL Citrate 50 MCG/ML 2 ML Injection IV PRN (16:55)
--- NOTE | 2024-07-05 17:19 | NUR ---
SUMMARY Neuro: Currently receiving precedex at 0.4 mcg/kg/hr. Had sedation interruption from 1100 to 1700. Precedex restarted due to persistent agitation and restlessness that resulted in SpO2 drop. Moves all extremities spontaneously but has not followed directions or opened eyes this shift. PERRL. Resp: #7.5 ETT remains placed 21 cm at gums. Vent settings ACVC 20/450/10/60%. SpO2 90% or greater. ETCO2 32. Lungs clear t/o. Small amount of white sputum suctioned from ETT. Cardiac: SR per monitor. BP stable with 18 mcg/min levophed and 0.04 units/min vasopressin. GI: TF stopped this shift due to pt vomiting. Rectal tube placed due to continuous void of brown liquid stool. : Good urine output through juan catheter. Urine is orange. Skin: Unchanged from initial assessment Psych: JAVAD due to intubation and decreased LOC. Family and friends at bedside updated and included in plan of care.
--- NOTE | 2024-07-05 19:15 | NUR ---
ASSESSMENT/ASSUMED CARE PT INTUBATED AND [facility]. RESTLESS. PULLING AGAINST RESTRAINTS. REACHING FOR ET TUBE. WILL NOT FOLLOW INSTRUCTIONS. MED WITH FENTANYL 50 MCQ. LUNGS CLEAR BUT DECREASED IN THE BASES. VENT SETTINGS AC 20/450/10/60%. SUCTIONED MODERATED AMT OF CLEAR TO WHITE THIN SECRECTIONS VIA ET TUBE. ORAL CARE DONE. BLOOD SECRECTIONS SUCTIONED VIA BACK OF MOUTH. SKIN WARM TEMP 98.6 TEMPORAL. SKIN JAUNDICE. BRUISING NOTED TO LEFT FLANK/UPPER ABD QUAD. DISCOLORATION TO LOWER EXT. EDEMA NOTED TO UPPER AND LOWER EXT. BILAT SCD'S TO BILAT LOWER EXT. HEART RATE REGULAR 80-90'S. BP STABLE ON LEVOPHED AT 20 MCQ AND VASOPRESSION AT 0.04 UNITS. WILL TITRATE TO KEEP MAP GREATER THAN 65. BT+HYPOACTIVE. ABD ROUND AND FIRM. TUBE FEED STOPPED PRE DR AMBROSE. OG TO LIS. CENTRAL LINE TO RIGHT IJ DRSG INTACT. PRECEDEX AT 0.04 MCQ AND NS AT 10 ML/HR. MINER CATH PATENT DRAINING ORANGE URINE. PT REPOSITONED TO LEFT WITH HOB UP. SMALL AMT OF ORANGE/NAVARRO LIQUID STOOL. JACKELINE CARE DONE. BILAT SOFT WRIST RESTRAINTS ON. TURNED WITH 30 DEGREE WEDGES BEHIND PT.
--- NOTE | 2024-07-05 20:11 | NUR ---
PT RESTLESS AND AGITATED. REACHING FOR ET TUBE. NOT FOLLOWING INSTRUCTIONS. RESP RATE UP TO 36. PRECEDEX INCREASED TO 0.6 AND PT MED WITH ATIVAN 2MG. SUCTIONED MODERATE AMT THIN WHITE SECRECTIONS VIA ET TUBE
--- NOTE | 2024-07-05 20:48 | NUR ---
FIO2 INCREASED TO 65% DUE TO SPO2 DOWN TO 89%. SUCTIONED MODERATE AMT THIN SECRECTIONS VIA ET TUBE
--- NOTE | 2024-07-05 21:25 | NUR ---
RT RT CHANGED VENT SETTINGS TO PC RATE 20 PI 20 PEEP 10 FIO2 75%
[2024-07-06] VITALS (96 sets, daily range): BP systolic 91–121; BP diastolic 41–64
[2024-07-06 03:53] LABS: Hematocrit 25.8 % (33.0-51.0); Hemoglobin 8.9 g/dL (11.5-16.0); Mean Corpuscular HGB Conc 34.5 g/dL (31.5-36.5); Mean Corpuscular Volume 96 fL (80-100); Mean Platelet Volume 9.2 fL (9.1-12.4); NRBC ABSOLUTE 0.12 K/mm3 (0.00-0.02); NRBC Auto 1.1 /100 WBC (0.0-0.2); Platelet Count 80 K/mm3 (150-400); RDW Coefficient Variation 19.2 % (11.7-14.2); RDW Standard Deviation 62.3 fL (35.1-46.3)
[2024-07-06 04:05] LABS: International Normalized Ratio 1.68; Prothrombin Time Results 17.3 Sec (9.7-11.5)
[2024-07-06 04:22] LABS: Magnesium, Blood 2.1 mg/dL (1.6-2.4)
[2024-07-06 04:37] LABS: Alanine Aminotransfer (ALT/SGP 18 U/L (12-78); Albumin, Blood 3.3 g/dL (3.4-5.0); Albumin/Globulin Ratio 1.6 (0.8-1.8); Alk Phos 53 U/L (50-136); Aspartate Aminotrans (AST/SGOT 50 U/L (12-37); Bilirubin, Direct 15.8 mg/dL (0.0-0.3); Bilirubin, Indirect 9.9 mg/dL (0.1-0.7); Bilirubin, Total 25.7 mg/dL (0.1-1.0); Phosphorus, Blood 2.3 mg/dL (2.5-4.9); Total Protein, Blood 5.3 g/dL (6.4-8.2)
[2024-07-06 05:20] LABS: Anion Gap 12 mmol/L (3-11); Blood Urea Nitrogen 31 mg/dL (8-24); Bun/Creatinine Ratio 38.9 (12.0-20.0); CO2, Blood 28 mmol/L (21-32); Calcium, Blood 8.3 mg/dL (8.5-10.1); Chloride, Blood 96 mmol/L (98-108); Glomerular Filtration Rate 91 (60-); Glucose, Blood 118 mg/dL (70-99); Potassium, Blood 3.5 mmol/L (3.5-5.5); Sodium, Blood 132 mmol/L (136-145)
[2024-07-06] MEDS ORDERED: Sodium Phosphate 15 MM in Dextrose 5% 250 ML IV ONE (06:00)
[2024-07-06] MEDS ORDERED: Vancomycin HCL 1,750 MG in NS 500 ML IV SCH (06:00)
[2024-07-06] MEDS ORDERED: Sodium Phosphate 15 MM in Dextrose 5% 500 ML IV STA (06:02)
--- NOTE | 2024-07-06 06:18 | NUR ---
SHIFT SUMMARY PT CONT INTUBATED AND ON MECH VENT. VENT SETTINGS CHANGED DURING THE NIGHT TO PC RATE 20 PI 20 PEEP 10 FIO2 INCREASED TO 100% DURING THE NIGHT TO KEEP SPO2 GREATER THAN 90. SUCTIONED MODERATE AMT THIN WHITE/CLEAR SECRECTIONS VIA ET TUBE. TITRATED LEVOPHED DOWN FROM 20 MCQ TO 10 MCQ TO KEEP MAP GREATER THAN 65. CONT ON VASOPRESSIN AT 0.04 UNITS. PT TURNED Q2HRS. BILAT SOFT WRIST RESTRAINTS ON. PT INCONT OF STOOL, FECAL INCONT BAG APPLIED. PHOS 2.3 THIS AM. RESULTS CALLED TO DR DICKINSON, AWAITING MEDS FROM PHARMACY. REPORT TO ON COMING NURSE
[2024-07-06] MEDS ORDERED: Spironolactone 50 MG Tab PT SCH (09:00)
[2024-07-06] MEDS ORDERED: Furosemide 10 MG/ML 4ML Vial IV SCH (09:00)
[2024-07-06] MEDS ORDERED: Ipratropium/Albuterol SulF 2.5-0.5MG/3 ML Amp INH SCH (09:30)
[2024-07-06] MEDS ORDERED: Lactulose 200 GM/300 ML Enema 300ML BTL PR ONE ×2 (09:55→12:00)
--- NOTE | 2024-07-06 11:00 | NUR ---
ASSUMED CARE OF PT AT 0700 ERIN TOLENTINO. RECEIVED BEDSIDE SHIFT REPORT FROM KIRSTEN TOLENTINO. AT TIME OF SHIFT REPORT, PRECEDEX AT 0.6 MCG/KG/HR, LEVOPHED AT 10 MCG/MIN, AND VASOPRESSIN AT 0.04 UNITS/ MIN. RASS -3. PT STARTS TO COUGH AND BECOMES AGITATED WHILE PERFORMING PT CARE, AND DESTURATES IN LOW 80S HIGH 70S. CONTINUOUS CARDIAC MONITORING IN PLACE, SHOWING SR.
--- NOTE | 2024-07-06 11:17 | NUR ---
"Spiritual Care | Introductory Visit Pt. is intubated and is not responsive when the Palliative Care nurse introduced me to the Spouse and another family member. Facilitated a short conversation where the spouse requested this manpower development advisor return when others gather at bedside. Notified attending nurse who will call me prior to planned extubation."
--- NOTE | 2024-07-06 13:34 | NUR ---
MET WITH PT'S AND SISTER THIS AM. WE DISCUSSED PT'S CONDITION, INCLUDING RECENT CHANGES. IS TEARFUL, CALLED OTHER FAMILY INCLUDING SON TO COME SEE THE PATIENT AND HAVE A FAMILY MEETING. UPON SON AND OTHER RELATIVE'S ARRIVAL, WE MET AGAIN TO DISCUSS PT'S RESPIRATORY STATUS ETC. PT CURRENTLY ON 100% FIO2, UP FROM 60 LAST EVENING. PT'S SON CONTINUES CRYING, FAMILY CONSOLING HIM. ASKED IF THEY NEED TIME, THEY STATE YES. WILL RETURN WHEN FAMILY IS READY.
[2024-07-06] MEDS ORDERED: Scopolamine Hydrobromide Patch TOP PRN (14:35)
[2024-07-06] MEDS ORDERED: Morphine Sulfate 10 MG/ML 1MLSYR IV PRN (14:35)
[2024-07-06] MEDS ORDERED: LORazepam 2 MG/ML 1ML Injection IV PRN (14:35)
[2024-07-06] MEDS ORDERED: Morphine Sulfate 20 MG/1ML 1 ML Oral Syringe SL PRN (14:35)
[2024-07-06] MEDS ORDERED: Atropine Sulfate 1% Opth Soln 2ML BTL SL PRN (14:35)
--- NOTE | 2024-07-06 15:15 | NUR ---
"Spiritual Care Support| Prep for comfort care Family is updated by Palliative care regarding comfort care procedures. Family and staff are waiting for more family to arrive."
--- NOTE | 2024-07-06 17:59 | NUR ---
END OF SHIFT SUMMARY PT INTUBATED AND SEDATED, VENT SETTINGS 20/20/10 WITH FIO2 OF 100%. PT BECOMES RESTLESS AND DESATURATES IN THE LOW 80'S TO HIGH 70'S WHEN REPOSITIONING AND PERFORMING CARE. FENTANYL AND ATIVAN PRN PER EMAR FOR RESTLESSNESS AND VENT TOLERANCE. CONTINUOUS CARDIAC MONITORING IN PLACE SHOWS SR, HR 60-70, SBP IN 100S WITH MAP GREATER THAN 65. LEVOPHED AT 10 MCG/MIN, VASOPRESSIN AT 0.04, PRECEDEX AT 0.6. PT UNABLE TO FOLLOW COMMANDS, WILL FREQUENTLY REACH FOR ETT. SOFT WRIST RESTRAINTS IN PLACE. PT HAD NO BM THIS SHIFT, MINER IS PATENT AND DRAINING TO GRAVITY WITH TEA COLORED URINE. EDEMA THROUGHOUT BLE AND BUE AND ABDOMEN. PALLIATIVE CARE CAME AND TALKED WITH FAMILY, FAMILY DECIDED TO CHANGE CODE STATUS TO DNR AND ALLOW COMFORT CARE MEASURES WHEN FAMILY COMES TO VISIT.
[2024-07-06] MEDS ORDERED: dexmedeTOMIDine 100 ML IV SCH (18:55)
[2024-07-06] MEDS ORDERED: Vasopressin 20 UNITS in NS 100 ML IV SCH (18:55)
--- NOTE | 2024-07-06 19:56 | NUR ---
PTS HAS STATED THAT HE WISHES TO WAIT UNTIL MORNING TO EXTUBATE SO THAT ALL FAMILY CAN VISIT FIRST.
[2024-07-07] VITALS: BP 115/59
[2024-07-07 00:15] VITALS: BP 114/60
[2024-07-07 00:30] VITALS: BP 111/59
[2024-07-07] MEDS ORDERED: Morphine Sulfate 20 MG/1ML 1 ML Oral Syringe SL PRN (00:35)
[2024-07-07] MEDS ORDERED: LORazepam 1 MG Tab PO PRN (00:35)
[2024-07-07] MEDS ORDERED: Scopolamine Hydrobromide Patch TOP PRN (00:35)
[2024-07-07] MEDS ORDERED: Morphine Sulfate 10 MG/ML 1MLSYR IV PRN (00:35)
[2024-07-07] MEDS ORDERED: Morphine Sulfate 10 MG/ML 1MLSYR INH PRN (00:35)
[2024-07-07] MEDS ORDERED: Atropine Sulfate 1% Opth Soln 2ML BTL SL PRN (00:35)
--- NOTE | 2024-07-07 00:44 | NUR ---
UPDATE PTS FAMILY HAS ALL ARRIVED AND BEEN HERE SINCE APPROXIMATELY 2300. I SPOKE WITH THEM FOR A WHILE AND ANSWERED QUESTIONS FOR THE FAMILY. PTS CAME OUT AROUND 0000 AND SAID THAT HE WANTED TO HAVE HER PALLIATIVELY EXTUBATED AROUND 0100. CALLED [facility] AND REINSTATED THE ORDERS.
[2024-07-07 00:45] VITALS: BP 111/55
[2024-07-07 01:00] VITALS: BP 109/57
--- NOTE | 2024-07-07 01:33 | NUR ---
UPDATE: PT EXTUBATED AT 0110. FAMILY RETURNED TO BEDSIDE.
--- NOTE | 2024-07-07 06:23 | NUR ---
SHIFT SUMMARY: PTS FAMILY ALL ARRIVED TODAY. THEY AGREED ON A PALLIATIVE EXTUBATION AND COMFORT CARE. PATIENT HAS NOT EXHIBITED SIGNS OF DISCOMFORT SINCE EXTUBATION. FAMILY REMAINS AT BEDSIDE.
--- NOTE | 2024-07-07 07:05 | NUR ---
ASSUMPTION OF CARE PT IS COMFORT CARE STATUS. APPEARS COMFORTABLE AND RESTING WITH EVEN CHEST RISE AND FALL. 3 FAMILY MEMBERS AT BEDSIDE.
--- NOTE | 2024-07-07 07:34 | NUR ---
RECEIVED REPORT FROM MELI OF ICU, PT GOING TO ROOM 364
--- NOTE | 2024-07-07 07:40 | NUR ---
TRANSFER TO 364 REPORT GIVEN TO CARLOS A TOLENTINO. PT TAKEN TO 364 BY MERCEDES ZAVALA. 3 VISITORS ACCOMPANY TRANSPORT.
--- NOTE | 2024-07-07 10:59 | NUR ---
BONITA TOLENTINO AND THIS RN ENTERED ROOM UPON FAMILY REQUEST, ASCULATATED HEART SOUNDS AND PALPATE RADIAL PULSES, FELT ABSENCE, ANOUNCED 1053. MACHINE CLOTH MEASURER NOTIFIED, NOTIFED.
--- NOTE | 2024-07-07 15:01 | NUR ---
"DISCHARGE" PT WAS TAKEN BY [facility] BY "JEFFREY". CEMENT FITTINGS MAKER AND THIS RN WERE WAITING FOR FAMILY TO CLEAR ROOM TO REMOVE RECTAL TUBE AND CATHETER. DID NOT HAVE THE CHANCE. ASKED JEFFREY IF SHE WANTS TUBES REMOVED, SHE REFUSED.
== END 2024-07-07 10:53 | DRG 871 ==
LOC: ER 15:05 → ERHOLD 18:49 → ICUE 18:49 → MEDS 07-07 08:00
PROVIDERS: Hospitalist; Internal Medicine Critical Care Medicine; Nurse Practitioner Acute Care; Student in an Organized Health Care Education/Training Program; ADMIT Internal Medicine
PROC: 5A09357 Assistance with Respiratory Ventilation, Less than 24 Consecutive Hours, Continuous Positive Airway Pressure (ICD-10-PCS; principal; 2024-07-01)
PROC: 0BH17EZ Insertion of Endotracheal Airway into Trachea, Via Natural or Artificial Opening (ICD-10-PCS; 2024-07-01)
PROC: 5A1945Z Respiratory Ventilation, 24-96 Consecutive Hours (ICD-10-PCS; 2024-07-01)
PROC: 0DH67UZ Insertion of Feeding Device into Stomach, Via Natural or Artificial Opening (ICD-10-PCS; 2024-07-01)
PROC: 3E0G76Z Introduction of Nutritional Substance into Upper GI, Via Natural or Artificial Opening (ICD-10-PCS; 2024-07-01)
PROC: 3E033XZ Introduction of Vasopressor into Peripheral Vein, Percutaneous Approach (ICD-10-PCS; 2024-07-01)
PROC: 02HV33Z Insertion of Infusion Device into Superior Vena Cava, Percutaneous Approach (ICD-10-PCS; 2024-07-01)
PROC: 4A033R1 Measurement of Arterial Saturation, Peripheral, Percutaneous Approach (ICD-10-PCS; 2024-07-01)
PROC: 3E03329 Introduction of Other Anti-infective into Peripheral Vein, Percutaneous Approach (ICD-10-PCS; 2024-07-01)
PROC: 30233J1 Transfusion of Nonautologous Serum Albumin into Peripheral Vein, Percutaneous Approach (ICD-10-PCS; 2024-07-01)
DX: A41.9 Sepsis, unspecified organism (principal); G93.41 Metabolic encephalopathy; I50.33 Acute on chronic diastolic (congestive) heart failure; J96.21 Acute and chronic respiratory failure with hypoxia; R65.21 Severe sepsis with septic shock; J18.9 Pneumonia, unspecified organism; K65.2 Spontaneous bacterial peritonitis; Z68.42 Body mass index [BMI] 45.0-49.9, adult; E87.3 Alkalosis; K76.6 Portal hypertension; E72.20 Disorder of urea cycle metabolism, unspecified; E87.21 Acute metabolic acidosis; E87.1 Hypo-osmolality and hyponatremia; K56.609 Unspecified intestinal obstruction, unspecified as to partial versus complete obstruction; Z51.5 Encounter for palliative care; G47.33 Obstructive sleep apnea (adult) (pediatric); F10.10 Alcohol abuse, uncomplicated; E80.6 Other disorders of bilirubin metabolism; E88.09 Other disorders of plasma-protein metabolism, not elsewhere classified; D69.6 Thrombocytopenia, unspecified; K76.82 Hepatic encephalopathy; E66.01 Morbid (severe) obesity due to excess calories; J45.40 Moderate persistent asthma, uncomplicated; B18.2 Chronic viral hepatitis C; F41.9 Anxiety disorder, unspecified; F32.A Depression, unspecified; F15.10 Other stimulant abuse, uncomplicated; J43.9 Emphysema, unspecified; K70.31 Alcoholic cirrhosis of liver with ascites; Z99.81 Dependence on supplemental oxygen; Z88.8 Allergy status to other drugs, medicaments and biological substances; Z91.148 Patient's other noncompliance with medication regimen for other reason; Z79.51 Long term (current) use of inhaled steroids; Z87.19 Personal history of other diseases of the digestive system; Z79.899 Other long term (current) drug therapy; Z90.721 Acquired absence of ovaries, unilateral
CPT/HCPCS: 0202U; 31500; 36415; 36600; 51702; 70450; 71045; 74018; 74176; 74177; 76705; 80048; 80053; 80076; 80202; 81001; 82140; 82248; 82803; 82947; 83605; 83615; 83735; 83880; 84100; 84145; 85025; 85027; 85610; 85730; 87040; 87070; 87086; 87205; 93005; 93010; 93308; 93321; 93975; 94002; 94003; 94640; 94644; 94660; 94664; 94667; 94668; 94760; 94762; 95819; 96365-59; 96366-59; 96367-59; 96375-59; 99285-25; A9270; C1751; J0330; J0456; J0696; J1644; J1885; J1940; J2060; J2270; J2470; J2543; J2704; J3010; J3370; J3475; J3480; J7040; J7050; J7060; J7120; P9045; P9047; Q9967